=== PATIENT | male | born 1945 | race Caucasian/White ===

== ENCOUNTER 2016-10-08 13:35 | Inpatient (IN) | payer MEDICARE, BC ==
[~2016-10-08] VITALS: Ht 172.7 cm; Wt 54.3 kg
--- NOTE | ~2016-10-08 | HEMODYNAMI ---
PATIENT:JONAH WATERS MEDICAL RECORD: [id number] : 41 LOCATION:D. D.2116 ADMISSION DATE: 10/08/16 Generatedon:10/09/201617:04 Patient name: JONAH WATERS Patient #: [id number] SSN: D OB: 1945 Date of study: 10/09/2016 Page: Of Hemodynamic Procedure Report Patient Data Patient Demographics First Name: JONAH Gender: Male Last Name: EVELIN : 1945 Middle Initial: M Age: 71 year(s) Patient #: [id number] Race: Additional ID: [id number] Contact details Address: [facility] [address] State: [place] City: [place] Zip code: [address] Past Medical History Allergies Allergen Reaction Date Comments Reported Penicillins 03/15/2015 Other allergy 10/09/2016 pcn Admission Admission Data Admission Date: 10/08/2016 Admission Time: 15:12 Room #: D.2215 Insurance Payor: Private health insurance, Medicare Height (in.): 66 BSA: 1.69 (m2) Height (cm.): 167.64 BMI: 21.79 (kg/m2) Weight (lbs.): 135 Weight (kg.): 61.23 Lab Results Lab Result Date: 10/09/2016 Lab Result Time: 7:10 Biochemistry Name Units Result Min Max BUN mg/dl 29 --(----)-* 7 18 Creatinine mg/dl 1 --(--*-)-- 0.6 1.3 CBC Name Units Result Min Max Hematocrit % 43.3 --(*---)-- 42 54 Hemoglobin g/dl 14 --(*---)-- 13.5 17.5 Procedure Procedure Types Cath Procedure Diagnostic Procedure LHC LHC w/Coronaries PCI Procedure Coronary Stent Initial Procedure Description Procedure Date Procedure Date: 10/09/2016 Procedure Start Time: 16:49 Procedure End Time: 17:03 Procedure Staff Name Function Dewayne Donnelly MD Performing Physician Tisha Zapata RT Scrub Krista Myles RN Nurse Shaun Foley RN Solderer Assembly Repair Ry Peraza RT Monitor Procedure Data Cath Procedure Fluoroscopy Diagnostic fluoroscopy Total fluoroscopy Time: 2.4 time: 2.4 min min Diagnostic fluoroscopy Total fluoroscopy dose: 704 dose: 704 mGy mGy Contrast Material Contrast Material Type Amount (ml) Isovue 300 86 Entry Location Entry Primary Successful Side Size Upsize Upsize Entry Closure Succes sful Closure Location (Fr) 1 (Fr) 2 (Fr) Remarks Device Remarks Femoral Right 5 Fr 6 Fr Vascade artery Short Closure System Estimated blood loss: 10 ml Diagnostic catheters Device Type Used For End Catheter Placement Cordis 5Fr Pigtail Procedure Catheter (MP) Cordis 5Fr JL 4.0 Procedure Catheter (MP) Cordis Infinity 5Fr JL 6 Procedure catheter Cordis 5Fr 3DRC Catheter Procedure (MP) Procedure Complications No complications Procedure Medications Medication Administration Route Dosage Oxygen NC 2 l/min Heparin Flush Bag added to field 2 bags (1000units/500ml NS) Lidocaine 2% added to field 20 Fentanyl I.V. 50 mcg Versed I.V. 1 mg Fentanyl I.V. 50 mcg Versed I.V. 1 mg Heparin Bolus I.V. 4000 units Integrilin (Bolus I.V. 5.6 ml 2mg/ml) Plavix P.O. 600 mg Hemodynamics Rest BSA: 1.69 (m2) HGB: 14 (g/dl) O2 Consumption: Estimated: 196.02 (ml/min) O2 Cons umption indexed: Estimated:115.99 (ml/min/m) Heart Rate: 72 (bpm) Snapshots Pre Cath Intra NCS Post Cath Vital Signs Time Heart Resp SPO2 NIBP (mmHg) Rhythm Pain Status Sedation Rate (ipm) (%) Level (bpm) 16:39:46 73 32 96 166/87(130) NSR 8 (11) , 10(A) Utterly horrible 16:44:02 72 33 97 164/87(134) NSR 8 (11) , 10(A) Utterly horrible 16:48:18 68 30 98 157/86(124) NSR 5 (11) , 10(A) Very distressing 16:52:34 70 26 97 157/80(121) NSR 0 (11) , No 9(A) pain 16:56:48 70 27 95 155/80(122) NSR 0 (11) , No 9(A) pain 17:01:02 71 23 97 154/79(118) NSR 0 (11) , No 10(A) pain Medications Time Medication Route Dose Verified Delivered Reason Notes Effectiveness by by 16:38:48 Oxygen NC 2 Dewayne Krista Per physician l/min Andrzej Myles RN 16:38:56 Heparin Flush added 2 Dewayne Dewayne used for Bag to bags Andrzej Donnelly MD procedure (1000units/500ml field NS) 16:39:04 Lidocaine 2% added 20ml Dewayne Dewayne used for to vial Andrzej Donnelly MD procedure field 16:45:23 Fentanyl I.V. 50 Dewayne Krista for back pain mcg Andrzej Myles RN 16:48:04 Versed I.V. 1 mg Dewayne Krista for sedation Andrzej Myles RN 16:50:04 Fentanyl I.V. 50 Dewayne Krista for sedation mcg Andrzej Myles RN 16:50:11 Versed I.V. 1 mg Dewayne Krista for sedation Andrzej Myles RN 16:56:16 Heparin Bolus I.V. 4000 Dewayne Krista for dose units Andrzej Myles RN anticoagulation verified with dr donnelly 16:58:28 Integrilin I.V. 5.6 Dewayne Krista for (Bolus 2mg/ml) ml Andrzej Myles RN antiplatelet therapy 16:59:44 Plavix P.O. 600 Dewayne Krista for mg Andrzej Myles RN antiplatelet therapy Procedure Log Time Note 16:14:56 Shaun Foley RN sent for patient. Start room use. 16:24:57 Time tracking: Regular hours 16:25:00 Plan of Care:Hemodynamics will remain stable., Cardiac rhythm will remain stable., Comfort level will be maintained., Respiratory function will remain adequate., Patient/ family verbilizes understanding of procedure., Procedure tolerated without complication., Recovers from procedure without complications.. 16:38:38 Vital chart was started 16:38:48 Oxygen 2 l/min NC was given by Krista Myles RN; Per physician; 16:38:56 Heparin Flush Bag (1000units/500ml NS) 2 bags added to field was given by Dewayne Donnelly MD; used for procedure; 16:39:04 Lidocaine 2% 20ml vial added to field was given by Dewayne Donnelly MD; used for procedure; 16:44:07 Patient received from Med II to CCL 1 Alert and oriented. Tansferred to table in Supine position. 16:44:08 Warm blankets applied, and abraham hugger turned on for patient comfort. 16:44:09 Correct patient and procedure confirmed by team. 16:44:09 ECG and BP/O2 sat monitors applied to patient. 16:44:12 Baseline sample Acquired. 16:44:18 Rhythm: sinus rhythm 16:44:38 H&P Date Dictated: 10/09/2016 Within 30 days and on chart.. 16:44:41 Pre-procedure instructions explained to patient. 16:44:41 Pre-op teaching completed and patient verbalized understanding. 16:44:52 Family in waiting room. 16:44:54 Patient NPO since Midnight. 16:45:03 Patient allergic to Other allergypcn 16:45:11 Is the patient allergic to Iodine/contrast media? No. 16:45:17 Is patient on blood thinner?No 16:45:18 Patient diabetic? No. 16:45:21 Previous problem with sedation/anesthesia? No ? 16:45:23 Fentanyl 50 mcg I.V. was given by Krista Myles RN; for back pain; 16:45:27 Snore? Yes 16:45:28 Sleep apnea? No 16:45:29 Deviated septum? No 16:45:30 Opens mouth fully? Yes 16:45:31 Sticks out tongue? Yes 16:45:34 Airway obstruction? Yes copd 16:45:40 Dentures? Yes in tight 16:45:43 Pre procedure: right dorsailis pedis pulse 2+ Normal; easily identifiable; not easily obliterated 16:45:46 Patient pain scale 0/10 ?. 16:45:58 IV patent on arrival in right antecubital with 0.9% NaCl at [facility]. 16:46:53 Lab Result : BUN 29 mg/dl 16:46:53 Lab Result : Hemoglobin 14 g/dl 16:46:53 Lab Result : Creatinine 1 mg/dl 16:46:53 Lab Result : Hematocrit 43.3 % 16:46:56 Lab results completed and on chart. 16:46:59 Right groin area was prepped with chlora-prep and draped in sterile fashion 16:47:00 Alarms reviewed by R. N. 16:47:01 Sharps counted by scrub and verified by R.N. 16:47:03 Use device set Femoral Dx 16:47:05 Tegaderm 4 x 4 opened to sterile field. 16:47:06 Acist Manifold opened to sterile field. 16:47:07 Acist Hand Control opened to sterile field. 16:47:08 Acist Syringe opened to sterile field. 16:47:08 Bag Decanter opened to sterile field. 16:47:10 Cardinal Cath Pack opened to sterile field. 16:47:10 Terumo 5Fr Burney Sheath opened to sterile field. 16:47:11 St Reese 260cm J .035 wire opened to sterile field. 16:47:12 Cordis Infinity 5Fr Multipack catheter opened to sterile field. 16:47:17 --------ALL STOP TIME OUT------ 16:47:18 Final Timeout: patient, procedure, and site verified with staff and physician. All members of the team are in agreement. 16:47:19 Right groin site verified by team. 16:47:22 Physical assessment completed. ASA score P 3 - A patient with severe systemic disease as per Dewayne Donnelly MD. 16:47:27 Sedation plan: IV Moderate Sedation Versed, Fentanyl 16:47:35 Patient Height : 167.64 cm 16:47:38 Patient Weight : 61.23 kg 16:47:43 Insurance Payor : Private health insurance, Medicare 16:48:04 Versed 1 mg I.V. was given by Krista Myles RN; for sedation; 16:49:14 Zero performed for pressure channel P1 16:49:54 Procedure started. 16:49:54 Full Disclosure recording started 16:49:56 Local anesthetic to right femoral artery with Lidocaine 2% by Dewayne Donnelly MD.INITIAL ACCESS ONLY 16:50:04 Fentanyl 50 mcg I.V. was given by Krista Myles RN; for sedation; 16:50:11 Versed 1 mg I.V. was given by Krista Myles RN; for sedation; 16:50:33 A 5 Fr sheath was inserted into the Right Femoral artery 16:50:38 A Cordis 5Fr Pigtail Catheter (MP) was advanced over the wire and used for Procedure. 16:50:40 LV gram done using GUAJARDO 16:50:44 Injector settings: Ml/sec: 110, Volume: 20, 16:51:02 EF : 30 % 16:51:04 Catheter exchanged over wire. 16:51:07 A Cordis 5Fr JL 4.0 Catheter (MP) was advanced over the wire and used for Procedure. 16:52:39 Catheter removed. unable to cannulate vessel. 16:52:55 A Cordis Infinity 5Fr JL 6 catheter was advanced over the wire and used for Procedure. 16:53:01 LCA angiography performed. 16:54:07 Terumo 6Fr Burney Sheath opened to sterile field. 16:54:08 Weir Black Rhino Groupisper J 300cm 0.014 guide wire opened to sterile field. 16:54:09 Merit BasixCompak Inflation Kit opened to sterile field. 16:54:11 IV Extension Set opened to sterile field. 16:54:17 Catheter exchanged over wire. 16:54:21 A Cordis 5Fr 3DRC Catheter (MP) was advanced over the wire and used for Procedure. 16:55:19 Catheter removed. 16:55:34 Sheath upsized to a 6 Fr Short. 16:56:13 [place] Sci Mach 1 6Fr Q 5.0 guide catheter opened to sterile field. 16:56:16 Heparin Bolus 4000 units I.V. was given by Krista Myles RN; for anticoagulation; dose verified with dr donnelly 16:56:23 6 Fr Q5 guide catheter was inserted over the wire 16:57:40 whisper wire advanced. 16:57:43 Wire advanced across lesion. 16:58:20 Inflation Number: 1 A Medtronic Resolute 3.5 X 9 stent was prepped and advanced across the LMCA. The stent was deployed at 13 KATIA for 0:10 (min:sec). 16:58:28 Integrilin (Bolus 2mg/ml) 5.6 ml I.V. was given by Krista Myles RN; for antiplatelet therapy; 16:58:28 Stent catheter was removed intact over wire. 16:58:38 ACC PCI Site: LMCA has 75% stenosis. 16:58:41 ACC Pre-intervention TIFFANY Flow is 2. 16:58:44 ACC Post-intervention TIFFANY Flow is 3. 16:58:57 Wire removed. 16:58:57 Guide catheter removed. 16:59:05 Vascade 6/7 Fr Closure Device opened to sterile field. 16:59:36 Sheath removed intact; hemostasis achieved with Vascade Closure System to the Right Femoral artery. 16:59:39 Procedure ended.(Physican Out) 16:59:44 Plavix 600 mg P.O. was given by Krista Myles RN; for antiplatelet therapy; 16:59:49 Fluoroscopy time 02.40 minutes. 16:59:53 Fluoroscopy dose: 704 mGy 16:59:53 Flurop Dose total: 704 17:00:18 Contrast amount:Isovue 300 86ml. 17:00:19 Sharps counted by scrub and verified by R.N. 17:02:22 Insertion/operative site no bleeding no hematoma. 17:02:24 Post-op/insertion site Right Femoral artery dressed using a 4 x 4 and Tegaderm. 17:02:28 Post right femoral artery:stable, soft, clean and dry 17:02:30 Post Procedure Pulses reassessed and unchanged 17:02:33 Post-procedure physical assessment completed. ASA score P 3 - A patient with severe systemic disease as per Dewayne Donnelly MD. 17:02:36 Post procedure rhythm: unchanged. 17:02:38 Estimated blood loss: 10 ml 17:02:39 Post procedure instruction explained to patient.Patient verbalizes understanding. 17:02:40 Patient needs reinforcement of post procedure teaching. 17:03:08 Procedure type changed to Cath procedure, Diagnostic procedure, LHC, LHC w/Coronaries, PCI procedure, Coronary Stent Initial 17:03:31 Procedure and supply charges have been captured, reviewed, submitted and are correct. 17:03:34 Procedure Complication : No complications 17:03:36 Vital chart was stopped 17:03:37 See physician's report for complete and final results. 17:03:39 Report given to PCU. 17:03:41 Patient transfered to PCU with Stretcher. 17:03:46 Procedure ended. 17:03:46 Full Disclosure recording stopped 17:03:56 ACC-PCI Only Patient was given prescriptions, or instructed by Dewayne Donnelly MD to start/continue the following medications upon discharge: Plavix 17:03:58 End room use (Document Last) Intervention Summary Intervention Notes Time ActionType Lesion and Equipment Action# Pressure Duration Attributes Used 16:58:20 Place stent LMCA Medtronic 1 13 00:10 Resolute 3.5 X 9 stent Device Usage Item Name Manufacture Quantity Catalog Number Hospital Part Current Minim al Lot# / Charge Number Stock Stock Serial# Code Tegaderm 4 3M 1 [id number] 249226 157166 5 x 4 Acist Acist 1 13066 946193 011203 302482 5 FoxyTunes Systems Our Family Kitchen Acist Hand Acist 1 40035 097276 150096 777166 5 Luxtera Systems Our Family Kitchen Acist Acist 1 66576 286182 659836 619608 20 Syringe Zebra Imaging Systems Our Family Kitchen Bag Microtek 1 2002S 273824 09300 409196 5 Quitbit Inc. Cardinal Cardinal 1 [id number] 599440 75454 376676 5 Cath Pack Health Terumo 5Fr Terumo 1 [id number] 540159 613887 682590 [address] Reese 1 783132 517646 059599 734655 30 260cm J .035 wire Cordis Cardinal 1 [id number] 411682 44048 000392 30 Infinity Health 5Fr Multipack catheter Cordis 5Fr Cardinal 1 887447 5 Pigtail Health Catheter (MP) Cordis 5Fr Cardinal 1 553419 5 JL 4.0 Health Catheter (MP) Cordis Cardinal 1 [id number] 050963 973393 191240 5 Infinity Health 5Fr JL 6 catheter Terumo 6Fr Terumo 1 [id number] 188631 387227 144007 40 Burney Sheath Weir Weir 1 [id number] 882183 387622 814469 5 Whisper J Vascular 300cm 0.014 guide wire Merit Merit 1 [id number] 884737 150308 826877 15 [facility] Medical Inflation Kit IV Hospira 1 14057-84 384948 10860 304801 5 Extension Set Cordis 5Fr Cardinal 1 004715 5 3DRC Health Catheter (MP) [place] Sci [place] 1 [id number] 404626 564245 221810 0 Mach 1 6Fr Scientific Q 5.0 guide catheter Medtronic Medtronic 1 [id number] 659962 793943 7 [id number] Resolute 3.5 X 9 stent Vascade 03/17 Cardiva 1 [id number] 404098 798005 057724 5 Fr Closure Medical, Device Inc. Signature Audit [place] Stage Time Signature Unsigned Intra-Procedure 10/09/2016 Ry Pearza 5:04:43 PM RT(R) Signatures Monitor : Ry Peraza RT Signature : Date : Time : [address] [place] [address]
[~2016-10-08 13:35] MED LIST: BAYER CHEWABLE81 MG PO; COREG 3.1253.125 MG PO; HYDROCODONE-APA1 TAB PO; IPRAT-ALBUT 0.5-3 ML UPD; K-DUR20 MEQ PO; LEXAPRO20 MG PO; LIPITOR10 MG PO; MOBIC7.5 MG PO; NICODERM C1 PATCH .1 TRANSDERM; NORVASC; NORVASC2.5 MG; OMNICEF300 MG PO; PLAVIX75 MG PO; PRINIVIL20 MG PO; SYMBICORT 16010.2 GM INH; VERELAN360 MG PO; VIBRAMYCIN 100100 MG PO
[2016-10-08 15:14] LABS: BASOPHILS 0.1 % (0.0-2.0); EOSINOPHILS 0.1 % (0-7); HEMATOCRIT 43.5 % (42.0-54.0); HEMOGLOBIN 14.2 g/dL (13.5-17.5); IMMATURE GRANULOCYTES 0.3 % (0-5); LYMPHOCYTES 3.9 % (15-50); MCH 30.8 pg (26.0-34.0); MCHC 32.6 g/dL (31.0-37.0); MCV 94.4 fL (80.0-100.0); MEAN PLATELET VOLUME 10.6 fL (7.4-10.4); MONOCYTES 7.2 % (2-11); NEUTROPHILS 88.4 % (40-80); RBC 4.61 10x6/uL (4.20-6.10); RDW 13.8 % (11.5-14.5); WBC 14.9 10x3/uL (4.8-10.8)
[2016-10-08 15:16] LABS: PLATELET COUNT 136 10x3/uL (130-400)
[2016-10-08 15:27] LABS: ALBUMIN 3.2 g/dL (3.4-5.0); ALKALINE PHOSPHATASE 105 U/L (46-116); ALT (SGPT) 20 U/L (10-68); BILIRUBIN - TOTAL 0.97 mg/dL (0.2-1.3); CALC OSMOLALITY 280 mosm/kg (275-300); CALCIUM 8.8 mg/dL (8.5-10.1); CARBON DIOXIDE 31.5 mmol/L (21.0-32.0); CHLORIDE - SERUM 102 mmol/L (98-107); CREATININE - SERUM 0.7 mg/dL (0.6-1.3); GLUCOSE 112 mg/dL (74-106); POTASSIUM - SERUM 3.9 mmol/L (3.5-5.1); PROTEIN - SERUM 6.7 g/dL (6.4-8.2); SODIUM 139 mmol/L (136-145); UREA NITROGEN 18 mg/dL (7-18); eGFR NON AFRICAN AMERICAN > 90 mL/min (90-120)
[2016-10-08 15:43] LABS: CREATINE KINASE 34 UL (21-232); PRO BNP 6810 pg/mL (0-125)
[2016-10-08 15:46] LABS: TROPONIN-I 0.179 ng/mL (0.000-0.060)
--- NOTE | 2016-10-08 16:03 | NUR ---
PATIENT RECEIVED TO FLOOR FROM ER VIA STRETCHER. TRANSFERRED SELF TO BED. NO SIGNS OF DISTRESS NOTED. ORIENTED TO ROOM. PRESENT. SIDE RAILS UP X1. BED IN LOW POSITION. CALL LIGHT IN REACH.
[2016-10-08] MEDS ORDERED: NORVASC5 MG PO ×2 (16:07→16:39)
[2016-10-08] MEDS ORDERED: OMEPRAZOLE20 M1 PO (16:08)
[2016-10-08] MEDS ORDERED: PROSCAR5 MG PO (16:08)
[2016-10-08] MEDS ORDERED: HAWTHORNE BERRY PO (16:09)
[2016-10-08] MEDS ORDERED: CO Q-1030 MG PO (16:09)
[2016-10-08 16:22] VITALS: BP 139/63; BMI 20.8
--- NOTE | 2016-10-08 18:42 | NUR ---
ALERT IN BED. C/O PAIN 02/17. 1 TAB NORCO ADMINISTERED PER PRN ORDER. NO FURTHER NEEDS VOICED. SIDE RAILS UP X2. BED IN LOW POSITION. CALL LIGHT IN REACH.
[2016-10-08 19:00] VITALS: BP 138/67
[2016-10-08 19:24] LABS: CKMB 1.5 U/L (0.0-3.6); CREATINE KINASE 43 UL (21-232)
[2016-10-08 19:27] LABS: TROPONIN-I 0.168 ng/mL (0.000-0.060)
[2016-10-09] VITALS: BP 146/67
[2016-10-09 01:45] LABS: CKMB 1.3 U/L (0.0-3.6); CREATINE KINASE 23 UL (21-232)
[2016-10-09 01:46] LABS: TROPONIN-I 0.142 ng/mL (0.000-0.060)
[2016-10-09 04:00] VITALS: BP 158/75
--- NOTE | 2016-10-09 07:30 | NUR ---
PT AWAKE AND ALERT NO DISTRES SNTOED VOICES ALL NEEDS TO STAFF. OBEYS ALL COMMANDS HAS COARSE SOUNDS NOTED TO LUNGS SHORT OF BREATH WITH EXERTION WILL MONITOR.
[2016-10-09 07:33] LABS: BASOPHILS 0 % (0.0-2.0); EOSINOPHILS 0 % (0-7); HEMATOCRIT 43.3 % (42.0-54.0); IMMATURE GRANULOCYTES 0.2 % (0-5); LYMPHOCYTES 6.1 % (15-50); MCH 30.2 pg (26.0-34.0); MCHC 32.3 g/dL (31.0-37.0); MCV 93.5 fL (80.0-100.0); MEAN PLATELET VOLUME 11.3 fL (7.4-10.4); MONOCYTES 4.4 % (2-11); NEUTROPHILS 89.3 % (40-80); PLATELET COUNT 147 10x3/uL (130-400); RBC 4.63 10x6/uL (4.20-6.10); RDW 13.8 % (11.5-14.5)
[2016-10-09 07:38] VITALS: BP 144/61
[2016-10-09 08:08] LABS: CALCIUM 8.9 mg/dL (8.5-10.1); CARBON DIOXIDE 31.1 mmol/L (21.0-32.0); CHLORIDE - SERUM 107 mmol/L (98-107); CKMB 1.5 U/L (0.0-3.6); CREATINE KINASE 26 UL (21-232); GLUCOSE 130 mg/dL (74-106); POTASSIUM - SERUM 4.3 mmol/L (3.5-5.1); SODIUM 142 mmol/L (136-145)
[2016-10-09 08:10] LABS: CALC OSMOLALITY 290 mosm/kg (275-300); TROPONIN-I 0.112 ng/mL (0.000-0.060); UREA NITROGEN 29 mg/dL (7-18); eGFR NON AFRICAN AMERICAN 78 mL/min (90-120)
[2016-10-09 11:47] VITALS: BP 144/59
[2016-10-09 13:40] VITALS: Ht 172.7 cm; Wt 54.3 kg
[2016-10-09 15:34] VITALS: BP 171/77
--- NOTE | 2016-10-09 15:52 | NUR ---
PREOP MEDS FOR TOBACCO DRYING MACHINE OPERATOR GIVEN AT THIS TIME. AWAITING CATH TEAM TO TRANSPORT TO TOBACCO DRYING MACHINE OPERATOR.
--- NOTE | 2016-10-09 16:10 | NUR ---
LYING IN BED,WITHOUT DISTRESS.FAMILY AT SIDE.PT WILL GO TO SOCIAL ORGANIZATION PROFESSOR FOR PROCEDURE
--- NOTE | 2016-10-09 16:14 | NUR ---
TO LATHE MACHINIST AT THIS TIME VIA BED
--- NOTE | 2016-10-09 17:30 | NUR ---
TRANSFER FROM SENIOR VICE PRESIDENT & GENERAL COUNSEL. VS WNL. RIGHT GROIN STABLE WITHOUT BLEEDING OR HEMATOMA NOTED. WILL MONITOR.
--- NOTE | 2016-10-09 19:00 | NUR ---
RECEIVED REPORT AND ASSUMED PT CARE FROM DAY SHIFT NURSE @ THIS TIME.
--- NOTE | 2016-10-09 21:18 | NUR ---
PT RESTING WELL WITHOUT C/O OR DISTRESS NOTED. RIGHT GROIN UNCHANGED AND REMAINS CDI. NO NEEDS VOICED. VSS, AFEBRILE. NSR ON MONITOR, HR 60'S.
[2016-10-09 22:35] VITALS: BP 140/68
[2016-10-10 01:32] VITALS: BP 137/68
[2016-10-10 05:10] LABS: BASOPHILS 0.1 % (0.0-2.0); EOSINOPHILS 0 % (0-7); HEMATOCRIT 39.5 % (42.0-54.0); HEMOGLOBIN 12.7 g/dL (13.5-17.5); IMMATURE GRANULOCYTES 0.3 % (0-5); MCH 30.2 pg (26.0-34.0); MCHC 32.2 g/dL (31.0-37.0); MCV 93.8 fL (80.0-100.0); MEAN PLATELET VOLUME 11.6 fL (7.4-10.4); MONOCYTES 4.5 % (2-11); NEUTROPHILS 91.1 % (40-80); PLATELET COUNT 141 10x3/uL (130-400); RBC 4.21 10x6/uL (4.20-6.10); RDW 14.1 % (11.5-14.5)
[2016-10-10 05:15] LABS: WBC 17.7 10x3/uL (4.8-10.8)
[2016-10-10 05:20] LABS: CALC OSMOLALITY 290 mosm/kg (275-300); CALCIUM 9.1 mg/dL (8.5-10.1); CARBON DIOXIDE 29.5 mmol/L (21.0-32.0); CHLORIDE - SERUM 108 mmol/L (98-107); CREATININE - SERUM 0.8 mg/dL (0.6-1.3); GLUCOSE 126 mg/dL (74-106); POTASSIUM - SERUM 4.9 mmol/L (3.5-5.1); SODIUM 142 mmol/L (136-145); UREA NITROGEN 30 mg/dL (7-18); eGFR NON AFRICAN AMERICAN > 90 mL/min (90-120)
[2016-10-10 05:59] VITALS: BP 148/64
--- NOTE | 2016-10-10 06:48 | NUR ---
RESTING QUIETLY NAD NOTED
[2016-10-10 07:56] VITALS: BP 179/85
[2016-10-10 12:22] VITALS: BP 154/71
[2016-10-10 16:00] VITALS: BP 133/54
--- NOTE | 2016-10-10 19:29 | NUR ---
INITIAL ROUNDS COMPLETED. PT DENIED ANY DISCOMFORT. WILL CONTINUE TO MONITOR.
[2016-10-10 20:30] VITALS: BP 152/77
--- NOTE | 2016-10-10 22:07 | NUR ---
PM MEDS GIVEN. PT DENIES ANY DISCOMFORT. WILL CONTINUE TO MONITOR.
--- NOTE | 2016-10-10 23:58 | NUR ---
PT RESTING WITH EYES CLOSED. RESP EVEN AND REGULAR. SR UP X2, CALL LIGHT WITHIN REACH.
[2016-10-11 00:30] VITALS: BP 148/73
[2016-10-11 01:41] LABS: APPEARANCE CLEAR (CLEAR); BILIRUBIN NEGATIVE (NEGATIVE); COLOR DK YELLOW (YELLOW); GLUCOSE NEGATIVE (NEGATIVE); KETONE SMALL mg/dL (NEGATIVE); LEUKOCYTE ESTERASE NEGATIVE (NEGATIVE); NITRITE NEGATIVE (NEGATIVE); PROTEIN NEGATIVE (NEGATIVE); UROBILINOGEN NORMAL (NORMAL)
--- NOTE | 2016-10-11 02:36 | NUR ---
RT TX IN PROGRESS. PT DENIES ANY DISCOMFORT. WILL CONTINUE TO MONITOR.
--- NOTE | 2016-10-11 03:43 | NUR ---
PT RESTING WITH EYES CLOSED. RESP EVEN AND REGULAR. SR UPX2, CALL LIGHT WITHIN REACH.
[2016-10-11 04:30] VITALS: BP 155/77
--- NOTE | 2016-10-11 06:25 | NUR ---
VSS THROUGHOUT NIGHT. SR PER CM. PT STATED NORCO HELPED PAIN. NEEDS MET; WILL CONTINUE TO MONITOR.
[2016-10-11 06:44] LABS: BASOPHILS 0.1 % (0.0-2.0); EOSINOPHILS 0 % (0-7); HEMATOCRIT 40.2 % (42.0-54.0); IMMATURE GRANULOCYTES 0.2 % (0-5); LYMPHOCYTES 3.1 % (15-50); MCH 30.4 pg (26.0-34.0); MCHC 32.3 g/dL (31.0-37.0); MCV 94.1 fL (80.0-100.0); MEAN PLATELET VOLUME 11.8 fL (7.4-10.4); MONOCYTES 2.6 % (2-11); PLATELET COUNT 161 10x3/uL (130-400); RBC 4.27 10x6/uL (4.20-6.10); RDW 13.9 % (11.5-14.5); WBC 17.1 10x3/uL (4.8-10.8)
[2016-10-11 06:56] LABS: CALC OSMOLALITY 282 mosm/kg (275-300); CALCIUM 8.4 mg/dL (8.5-10.1); CARBON DIOXIDE 31.7 mmol/L (21.0-32.0); CHLORIDE - SERUM 106 mmol/L (98-107); CREATININE - SERUM 0.7 mg/dL (0.6-1.3); GLUCOSE 119 mg/dL (74-106); POTASSIUM - SERUM 4.8 mmol/L (3.5-5.1); SODIUM 140 mmol/L (136-145); eGFR NON AFRICAN AMERICAN > 90 mL/min (90-120)
[2016-10-11 06:57] LABS: UREA NITROGEN 22 mg/dL (7-18)
--- NOTE | 2016-10-11 07:15 | NUR ---
RECEIVED PT IN BED DENIES ANY NEEDS OR DISCOMFORT NAD NOTED
[2016-10-11 09:00] VITALS: BP 111/72
[2016-10-11 11:58] VITALS: BP 155/72
[2016-10-11 17:14] VITALS: BP 149/75; BP 96/52
[2016-10-11 21:18] VITALS: BP 143/69
--- NOTE | 2016-10-11 22:29 | NUR ---
INITIAL ROUNDS COMPLETED AT 1909 HRS. PT DENIED ANY DISCOMFORT. ASSESSMETN COMPLETED AT 1954 HRS. VSS. SR PER CM HR 66. IV TO LFA WITH NS AT 10CC/HR. IV PATENT. O2 4LNC. LUNGS DIMINISHED IN BASES BILAT. GOOD PEDAL PULSES. R GROIN CLEAN, DRY AND INTACT. PM MEDS GIVEN INCLUDING NORCO FOR C/O CHRONIC BACK PAIN. PT CURRENTLY RESTING WITH EYES CLOSED. RESP EVEN AND REGULAR. SR UP X2, CALL LIGHT WITHIN REACH.
--- NOTE | 2016-10-12 00:23 | NUR ---
PT RESTIG WITH EYES CLOSED. RESP EVEN AND REGULAR. SR UP X2, CALL LIGHT WITHIN REACH.
[2016-10-12 00:30] VITALS: BP 146/74
--- NOTE | 2016-10-12 02:11 | NUR ---
PT RESTING WITH EYES CLOSED. RESP EVEN AND REGULAR. SR UP X2, CALL LIGHT WITHIN REACH.
--- NOTE | 2016-10-12 04:29 | NUR ---
PT RESTING WITH EYES CLOSED. RESP EVEN AND REGULAR. SR UP X2, CALL LIGHT WITHIN REACH.
[2016-10-12 04:30] VITALS: BP 156/80
[2016-10-12 06:23] LABS: BASOPHILS 0.1 % (0.0-2.0); EOSINOPHILS 0 % (0-7); HEMATOCRIT 42.9 % (42.0-54.0); HEMOGLOBIN 13.8 g/dL (13.5-17.5); IMMATURE GRANULOCYTES 0.3 % (0-5); LYMPHOCYTES 5.3 % (15-50); MCH 30.1 pg (26.0-34.0); MCHC 32.2 g/dL (31.0-37.0); MCV 93.5 fL (80.0-100.0); MEAN PLATELET VOLUME 11.5 fL (7.4-10.4); MONOCYTES 3.9 % (2-11); NEUTROPHILS 90.4 % (40-80); PLATELET COUNT 170 10x3/uL (130-400); RBC 4.59 10x6/uL (4.20-6.10); RDW 13.6 % (11.5-14.5)
[2016-10-12 06:28] LABS: WBC 12.2 10x3/uL (4.8-10.8)
[2016-10-12 06:32] LABS: CALC OSMOLALITY 280 mosm/kg (275-300); CALCIUM 8.9 mg/dL (8.5-10.1); CHLORIDE - SERUM 104 mmol/L (98-107); CREATININE - SERUM 0.7 mg/dL (0.6-1.3); GLUCOSE 111 mg/dL (74-106); POTASSIUM - SERUM 4.8 mmol/L (3.5-5.1); SODIUM 139 mmol/L (136-145); UREA NITROGEN 18 mg/dL (7-18); eGFR NON AFRICAN AMERICAN > 90 mL/min (90-120)
[2016-10-12 08:03] VITALS: BP 139/80
--- NOTE | 2016-10-12 09:21 | NUR ---
TELEMETRY SR. RESP UL ON 02 4L NC. IV PATENT. CALL LIGHT IN REACH. WILL CONT. PLAN OF CARE.
[2016-10-12 13:00] VITALS: BP 145/69
[2016-10-12 16:23] VITALS: BP 181/72
--- NOTE | 2016-10-12 16:39 | NUR ---
C/O OF BURNING TO LEFT SIDE NOSE AND FACE. C/O OF TINGLING TO LEFT SIDE FASE AFTER PAIN AND BURNIN RESOLVED. ZOFRAN 4 MG GIVEN FOR NAUSEA AND VOMITING. 02 SAT 95%. B/P 182/79. DEJA FOR DR. BURKETT NOTIFIED. NEW ORDERS GIVEN. WILL MONITOR.
--- NOTE | 2016-10-12 17:10 | NUR ---
DR. DIAZ AT BS. STROKE PROTACOL AND ORDERED STROKE PROTACOL. STAT CT ORDERED.
--- NOTE | 2016-10-12 17:28 | NUR ---
CT COMPLETED AND TAKEN TO ER. WILL CONT. PLAN OF CARE.
[2016-10-12 17:31] LABS: CKMB 1.4 U/L (0.0-3.6); CREATINE KINASE 24 UL (21-232); TROPONIN-I 0.049 ng/mL (0.000-0.060)
--- NOTE | 2016-10-12 18:31 | NUR ---
BACK FROM ER. VS STABLE. NO STROKE INCDIACTED. WILL CONT. PLAN OF CARE.
--- NOTE | 2016-10-12 19:00 | NUR ---
RECEIVED REPORT AND ASSUMED PT CARE FROM DAY SHIFT NURSE @ THIS TIME.
--- NOTE | 2016-10-12 20:31 | NUR ---
PT STATES HIS BACK IS HURTING AND REQUESTING PAIN PILL. PT NOW STATES UNABLE TO SWALLOW, WHEN PT SMILES HIS LEFT SIDE DOES NOT RAISE ANY. WHEN TAKING SMALL SIPS OF H2O PT IS COUGHING. GLASSWARE VERIFIER AND BUE STRENGTH EQUAL BILAT. BLE STRENGTH BILAT. PUPILS ORLY BILAT. CALL TO DEJA BETH APN ASSEMBLER FAUCETS FOR DR CALIX. AWAITING RETURN CALL.
--- NOTE | 2016-10-12 21:45 | NUR ---
PT SPOUSE COMES OUT TO DESK. STATES PT HAS BEEN TRYING TO URINATE ALL EVENING WITHOUT ANY SUCCESS. PT C/O TENDERNESS OVER PELVIC REGION ON PALP[ATION AND BLADDER FEELS DISTENDED. BLADDER SCAN DONE AT THE BEDSIDE, RESULTS 971 ML IN THE BLADDER. KRISHNAN CATH 16 FR PLACED PER ASEPTIC TECH FOR PT COMFORT. AWAITING RETURN CALL FROM DEJA BETH APN. PT URINE OUTPUT APPROX 1,000 ML CLEAR YELLOW URINE. KRISHNAN PLACED WITHOUT COMPLICATIONS AND PT TOLERATED WELL. NO CHANGES IN NEURO ASSESSMENT. WILL CONT TO MONITOR. SPOUSE @ BEDSIDE.
--- NOTE | 2016-10-12 22:14 | NUR ---
DEJA BETH APN RETURNS CALL. NOTIFIED OF PT BEING UNABLE TO SWALLOW AND LEFT SIDE FACIAL DROOP. ALSO EXPLAINED THAT PT IS NOW UNABLE TO VOID AND KRISHNAN CATHETER PLACED. NEW ORDERS RECEIVED FOR MRI OF THE BRAIN NOW AND ORDER RECEIVED TO CONSULT DR ROCHA. CALL PUT INTO DR ROCHA AT THIS TIME, AWAITING RETURN CALL.
--- NOTE | 2016-10-12 22:29 | NUR ---
PT AND SPOUSE STATE THAT D/T HARDWARE IN THE PT'S SPINE THAT PT IS UNABLE TO HAVE A MRI DONE. WILL SPEAK WITH FISHER EEL AND INFORM WHAT PT IS STATING ABOUT HAVING METAL HARDWARE.
[2016-10-12 22:42] VITALS: BP 157/76
--- NOTE | 2016-10-12 22:54 | NUR ---
NO RETURN CALL FROM DR ROCHA RECEIVED. CALL TO ANSWERING SERVICE TO PAGE DR ROCHA AGAIN TO NOTIFY OF CONSULT.
--- NOTE | 2016-10-12 23:31 | NUR ---
STILL NO RETURNED CALL FROM DR ROCHA TO INFORM HIM OF CONSULT. CALL TO ANSWERING SERVICE ONCE MORE AT THIS TIME.
--- NOTE | 2016-10-12 23:39 | NUR ---
IOS SOFTWARE ENGINEER HERE TO TAKE PT TO MRI. IOS SOFTWARE ENGINEER STATES THAT ORTHO HARDWARE DOES NOT EXCLUDE THE PT FROM HAVING A MRI. PT GOES VIA WC TO MRI AT THIS TIME ACCOMPANIED BY ZUMBA INSTRUCTOR. SPOUSE REMAINS IN ROOM
--- NOTE | 2016-10-13 00:15 | NUR ---
NO RETURN CALL FROM DR ROCHA X3 CALLS TO ANSWERING SERVICE. WILL NOTIFY DR ROCHA IN THE AM OF THIS CONSULT.
--- NOTE | 2016-10-13 00:15 | NUR ---
PT RETURNS FROM MRI. NEURO CHECKS DONE ORDERED. NO CHANGES NOTED. WILL CONT TO MONITOR.
[2016-10-13 05:35] VITALS: BP 165/81
[2016-10-13 06:35] LABS: HEMATOCRIT 45.6 % (42.0-54.0); HEMOGLOBIN 15.2 g/dL (13.5-17.5); MCH 30.6 pg (26.0-34.0); MCHC 33.3 g/dL (31.0-37.0); MCV 91.9 fL (80.0-100.0); MEAN PLATELET VOLUME 11.5 fL (7.4-10.4); PLATELET COUNT 217 10x3/uL (130-400); RBC 4.96 10x6/uL (4.20-6.10); RDW 13.4 % (11.5-14.5); WBC 22.8 10x3/uL (4.8-10.8)
[2016-10-13 06:58] LABS: CALC OSMOLALITY 278 mosm/kg (275-300); CALCIUM 9.2 mg/dL (8.5-10.1); CHLORIDE - SERUM 102 mmol/L (98-107); CREATININE - SERUM 0.6 mg/dL (0.6-1.3); POTASSIUM - SERUM 4.2 mmol/L (3.5-5.1); SODIUM 139 mmol/L (136-145); UREA NITROGEN 15 mg/dL (7-18); eGFR NON AFRICAN AMERICAN > 90 mL/min (90-120)
[2016-10-13 06:59] LABS: GLUCOSE 97 mg/dL (74-106)
[2016-10-13 07:39] LABS: APTT 26.4 SECONDS (22.8-39.4); INR 1.05 (0.85-1.17); PROTIME 13.6 SECONDS (11.6-15.0)
[2016-10-13 07:50] LABS: LYMPHOCYTES 5 % (15-50); MONOCYTES 8 % (2-11); NEUTROPHILS 83 % (40-80); PLATELET ESTIMATE NORMAL
[2016-10-13 07:52] VITALS: BP 174/84
--- NOTE | 2016-10-13 08:50 | NUR ---
TO CT BY BED FOR THORACENTESIS. TELEMETRY SR. IV PATENT. KRISHNAN INTACT. WILL CONT. PLAN OF CARE.
--- NOTE | 2016-10-13 09:54 | NUR ---
BACK FROM THORASENTESIS. VS WNL. DRSG TO BACKSIDE CLEAN AND DRY. WILL CONT. PLAN OF CARE.
--- NOTE | 2016-10-13 11:40 | NUR ---
SAB[address] WAY DONE AT BS.
[2016-10-13 12:00] VITALS: BP 167/75
[2016-10-13 12:40] LABS: PROTEIN - BODY FLUID 1.2 G/DL
[2016-10-13 13:17] LABS: LYMPH - BF 75 %; MACROPHAGES BF 16 %; MESOTHELIALS BF 6 %; NEUT - BF 3 %
--- NOTE | 2016-10-13 14:24 | NUR ---
Nutrition follow-up: Pt is currently NPO due to choking spell; bedside swallow eval reveals swallowing issues; pt to stay NPO until after MBSS. PO intake before choking spell was ~75% average of most meals. Labs reviewed +BM RDN will monitor patients diet advancement and tolerance; waiting for results of MBBS. RDN following.
--- NOTE | 2016-10-13 14:43 | NUR ---
BACK AND CHEST PAIN AT 8. DR. BURKETT NOTIFIED. MORPHINE 5 MG GIVENPER 1 TIME ORDER. WILL MONITOR.
[2016-10-13 15:44] VITALS: BP 155/73
[2016-10-13 20:33] VITALS: BP 146/66
[2016-10-14 00:32] VITALS: BP 152/99
[2016-10-14 04:42] VITALS: BP 147/66
--- NOTE | 2016-10-14 06:11 | NUR ---
PT ASSESSMENT COMPLETED PT C/O PAIN TO BACK AND PRN MORPHINE ADMIN ORDERED AND IN ROOM AT BEDSIDE CALL LIGHT IN REACH SR X2 BED LOW AND LOCKED WILL MONITOR
[2016-10-14 08:00] VITALS: BP 152/78
--- NOTE | 2016-10-14 09:00 | NUR ---
LEAVING FOR MRI BY W/C.
[2016-10-14 10:19] LABS: FUNGUS STAIN Final report (())
--- NOTE | 2016-10-14 11:30 | NUR ---
LEAVING FOR SWOLLOW EVAL BY BED.
[2016-10-14 12:00] VITALS: BP 160/105
[2016-10-14 13:39] LABS: CALCIUM 8.8 mg/dL (8.5-10.1); CARBON DIOXIDE 35.3 mmol/L (21.0-32.0); CHLORIDE - SERUM 101 mmol/L (98-107); GLUCOSE 122 mg/dL (74-106); POTASSIUM - SERUM 3.8 mmol/L (3.5-5.1); SODIUM 139 mmol/L (136-145)
[2016-10-14 13:52] LABS: BASOPHILS 0 % (0.0-2.0); CALC OSMOLALITY 282 mosm/kg (275-300); CREATININE - SERUM 0.8 mg/dL (0.6-1.3); EOSINOPHILS 0 % (0-7); HEMATOCRIT 50.5 % (42.0-54.0); IMMATURE GRANULOCYTES 0.6 % (0-5); LYMPHOCYTES 7.2 % (15-50); MCHC 33.7 g/dL (31.0-37.0); MEAN PLATELET VOLUME 11.1 fL (7.4-10.4); MONOCYTES 1.9 % (2-11); NEUTROPHILS 90.3 % (40-80); PLATELET COUNT 206 10x3/uL (130-400); RBC 5.49 10x6/uL (4.20-6.10); RDW 13.3 % (11.5-14.5); UREA NITROGEN 23 mg/dL (7-18); eGFR NON AFRICAN AMERICAN > 90 mL/min (90-120)
[2016-10-14 16:00] VITALS: BP 148/82
[2016-10-14 17:11] LABS: AFB SPECIMEN PROCESSING Concentration (())
[2016-10-14 20:00] VITALS: BP 157/86
[2016-10-15] VITALS: BP 166/90
--- NOTE | 2016-10-15 03:54 | NUR ---
EDITORIAL WRITER AT BEDSIDE TO OBTAIN VITALS, CALL LIGHT IN REACH. WILL CONTINUE WITH PLAN OF CARE.
[2016-10-15 04:00] VITALS: BP 167/92
[2016-10-15 06:04] LABS: BASOPHILS 0 % (0.0-2.0); EOSINOPHILS 0 % (0-7); HEMATOCRIT 46.3 % (42.0-54.0); HEMOGLOBIN 15.5 g/dL (13.5-17.5); IMMATURE GRANULOCYTES 0.5 % (0-5); MCH 30.8 pg (26.0-34.0); MCHC 33.5 g/dL (31.0-37.0); MEAN PLATELET VOLUME 11.6 fL (7.4-10.4); MONOCYTES 5.5 % (2-11); PLATELET COUNT 204 10x3/uL (130-400); RBC 5.03 10x6/uL (4.20-6.10); RDW 13.3 % (11.5-14.5); WBC 20.9 10x3/uL (4.8-10.8)
[2016-10-15 06:27] LABS: CALC OSMOLALITY 289 mosm/kg (275-300); CHLORIDE - SERUM 104 mmol/L (98-107); CREATININE - SERUM 0.8 mg/dL (0.6-1.3); GLUCOSE 110 mg/dL (74-106); MAGNESIUM - SERUM 2.4 mg/dL (1.8-2.4); PHOSPHOROUS 3.8 mg/dL (2.5-4.9); POTASSIUM - SERUM 3.9 mmol/L (3.5-5.1); SODIUM 142 mmol/L (136-145); UREA NITROGEN 28 mg/dL (7-18); eGFR NON AFRICAN AMERICAN > 90 mL/min (90-120)
[2016-10-15 08:14] VITALS: BP 134/85
[2016-10-15 12:45] VITALS: BP 179/92
--- NOTE | 2016-10-15 13:18 | NUR ---
Nutrition follow-up: Pt NPO for PEG tube placement due to aspiration Labs reviewed Wt: 135# Recommend starting Jevity 1.2 mara @ 20 ml/hr with gradual increase to goal rate of 70 ml/hr RDN following.
--- NOTE | 2016-10-15 16:23 | OP ---
PATIENT NAME: JONAH WATERS MEDICAL RECORD: [id number] :43 LOCATION:D.M2 D.2116 ADMISSION DATE:10/08/16 SURGEON: CANDACE PAIGE MD DATE OF OPERATION: 10/09/2016 PROCEDURES: 1. PTCA stent left main. 2. Left heart catheterization. 3. Selective coronary angiography. 4. Left ventriculogram. INDICATION: Angina and coronary artery disease. PROCEDURE IN DETAIL: After informed consent was obtained and after a detailed explanation of the risks, benefits as well as alternative therapies, the patient elected to proceed with angiogram and angioplasty. The right femoral area was prepped and draped in normal sterile fashion. The right femoral artery was cannulated via modified Seldinger technique with placement of 6-Belarusian sheath. All catheters exchanged through this sheath. FINDINGS: The left ventriculogram was performed in standard 30-degree GUAJARDO view, reveals moderate LV dysfunction with ejection fraction of 30%. SELECTIVE CORONARY ANGIOGRAPHY: 1. Left main has a 70% to 80% stenosis in the distal aspect. 2. Left circumflex has moderate irregularities, but no flow-limiting stenosis. 3. Left anterior descending has moderate irregularities, but no flow-limiting stenosis. Previously placed stents are widely patent. 4. Right coronary is chronically totally occluded, distal right coronary fills via left to right collaterals. PTCA STENT OF THE LEFT MAIN: The stent used was a 3.5 x 9 mm Resolute stent taken to 17 atmospheres. Result was 0% residual stenosis. OVERALL IMPRESSION: Successful percutaneous transluminal coronary angioplasty stent of the left main going from 70-80% initial stenosis to 0% residual stenosis. TRANSINT:[id number] Voice Confirmation ID: [id number] DOCUMENT ID: [id number] CANDACE PAIGE MD at 1623 CC: [id number] DICTATION DATE: 10/09/16 170 C JAVA DEVELOPER: 10/09/16 1808 ADM IN [place] [id number] [place] [address]
--- NOTE | 2016-10-15 16:23 | EC ---
PATIENT:JONAH WATERS DATE OF SERVICE: 10/08/16 SEX: M MEDICAL RECORD: [id number] DATE OF : [birth year] LOCATION:D.M2 D.211 AGE OF PATIENT: 71 ADMISSION DATE: 10/08/16 REFERRING PHYSICIAN: INTERPRETING PHYSICIAN: CANDACE DONNELLY MD ECHOCARDIOGRAM REPORT ECHO CHARGES 4 ECHO COMPLETE CLINICAL DIAGNOSIS: HTN HX CAD/STENTS ECHOCARDIOGRAPHIC MEASUREMENTS (adult normal given) AC root (d.<3.7cm) 3.6 LV Septum d (<1.2 cm> 1.4 Valve Excursion 2.0 LV Septum (systole) 1.6 Left Atria (s.<4.0cm> 4.7 LVPW d(<1.2cm) 1.2 RV (d.<2.3cm) 5.2 LVPW (sytole) 1.4 LV diastole(<5.6CM) 6.4 MV E-F(>70mm/sec) LV systole 5.4 LVOT Diameter 2.1 MV exc.(>10mm) 1.4 Est.ejection fraction (50-75%) Pericardial Effusion N DOPPLER: LVIT A 86.0 E 113 LA RVSP 45 LVOT 91 AOP1/2T 551 Asc. Ao 154 RVOT RA PA AV Gradient Peak 9.52 AV Mean 3.93 AV Area 2.2 MV Gradient Peak 6.02 MV Mean 2.17 MV Area COMMENTS: Script Reader: Malathi MENDEZ Towing Pilot:Estelita Donnelly TAPE# PACS DATE OF SERVICE: 10/09/2016 Echocardiogram FINDINGS: 1. Left ventricular chamber size is mildly dilated. Left ventricular systolic function is preserved. Overall ejection fraction 50%. 2. Left atrium is enlarged at 4.7 cm. Right atrium and right ventricular chamber sizes are as well rmfh-ae-wugjfuyeuq dilated. 3. Valvular structures have normal structure and motion. ECHOCARDIOGRAM REPORT [id number] JONAH WATERS 4. Doppler interrogation reveals thfh-af-mseawtio aortic insufficiency, tthh-iv-ddbaicyd mitral regurgitation, pdsc-dr-ygvvzccb tricuspid regurgitation, no other valvular insufficiency or stenosis. Pulmonary systolic pressure is mildly elevated, estimated at 45 mmHg. 5. No evidence of pericardial effusion or left ventricular thrombus. TRANSINT:[id number] Voice Confirmation ID: [id number] DOCUMENT ID: [id number] CANDACE DONNELLY MD at 1623 CC: [id number] DICTATION DATE: 10/09/16 1209 PRINTING WORKER SUPERVISOR: 10/09/16 1304 ADM IN [place] [id number] [place] [id number]
[2016-10-15 16:57] VITALS: BP 174/95
[2016-10-15 20:15] VITALS: BP 150/85
--- NOTE | 2016-10-15 20:34 | NUR ---
RESUMED CARE OF PT, LYING IN BED RESPIRATIONS EVEN AND UNLABORED ON 3LPM VIA NC. AT BEDSIDE, PLAN OF CARE DISCUSSED. KRISHNAN TO GRAVITY. LEFT FOREARM INFUSING NS @ 50. 75 SR ON TELEMETRY. CALL LIGHT IN REACH. WILL CONTINUE TO MONITOR. SEE NURSE ASSESSMENT.
[2016-10-16] VITALS: BP 161/810
[2016-10-16 04:00] VITALS: BP 158/93
--- NOTE | 2016-10-16 05:30 | NUR ---
CALL LIGHT IN REACH. WILL CONTINUE WITH PLAN OF CARE.
[2016-10-16 05:32] LABS: BASOPHILS 0 % (0.0-2.0); EOSINOPHILS 0 % (0-7); HEMATOCRIT 46.5 % (42.0-54.0); HEMOGLOBIN 15.3 g/dL (13.5-17.5); IMMATURE GRANULOCYTES 0.5 % (0-5); LYMPHOCYTES 3.4 % (15-50); MCH 30.7 pg (26.0-34.0); MCHC 32.9 g/dL (31.0-37.0); MCV 93.2 fL (80.0-100.0); MEAN PLATELET VOLUME 11.6 fL (7.4-10.4); MONOCYTES 2.6 % (2-11); NEUTROPHILS 93.5 % (40-80); PLATELET COUNT 201 10x3/uL (130-400); RBC 4.99 10x6/uL (4.20-6.10); RDW 13.5 % (11.5-14.5); WBC 20.1 10x3/uL (4.8-10.8)
[2016-10-16 06:14] LABS: CALC OSMOLALITY 288 mosm/kg (275-300); CALCIUM 8.3 mg/dL (8.5-10.1); CARBON DIOXIDE 31.9 mmol/L (21.0-32.0); CHLORIDE - SERUM 104 mmol/L (98-107); CREATININE - SERUM 0.7 mg/dL (0.6-1.3); GLUCOSE 95 mg/dL (74-106); SODIUM 142 mmol/L (136-145); UREA NITROGEN 30 mg/dL (7-18); eGFR NON AFRICAN AMERICAN > 90 mL/min (90-120)
[2016-10-16 06:15] LABS: POTASSIUM - SERUM 4.5 mmol/L (3.5-5.1)
--- NOTE | 2016-10-16 07:30 | NUR ---
RECEIVED PT IN BED EYES CLOSED RESP UNLABORED NAD NOTED
[2016-10-16 08:00] VITALS: BP 166/93
--- NOTE | 2016-10-16 09:13 | NUR ---
Nutrition consult: Ordered Glucerna 1.0 mara to start at 15 ml/hr and increase slowly to goal rate of 75 ml/hr. Thank you for the consult. RDN following.
--- NOTE | 2016-10-16 11:29 | NUR ---
Patient Name: JONAH HASSAN Admission Status: ER Accout number: [id number] Admission Date: 10-08-2016 : 1945 Admission Diagnosis:CHRONIC OBSTRUCTIVE PULMON DISEASE W ACUTE LOWER RESP I Attending: LUCIO Current LOS: 8 Anticipated DC Date: Planned Disposition: Home Primary Insurance: MEDICARE A & B Discharge Planning Comments: CM met with patient and spouse to discuss discharge planning/needs. The patient will need Home Health services for PEG teaching, PT, and Speech therapy. The patient's home oxygen is supplied by [facility] in [facility] ([phone]). His spouse also states he has a home nebulizer, walker, cane, and a walk-in shower. The patient's spouse states she "Rama Hassan" ([phone]) will be the patient's transportation home. She wishes to discuss home health agency with friends prior to making a decision. She states she manages the patient's medications. KIP list given to patient's spouse. Both patient and spouse agree their home is a safe environment to discharge to. CM to follow/assist as needed with discharge planning/needs. Candy Starch Mold Printer: Charis Sahu RN/CM * Is the patient Alert and Oriented? Yes 0 * How many steps to enter\\exit or inside your home? 2 0 * PCP Adolfo 0 * Pharmacy [facility] 0 * Preadmission Environment Home with Family 0 * ADLs Partial Dependent 0 * Partial ADLs (Assistance needed) Medication Management 0 * Equipment Nebulizer Oxygen Walker 0 * List name and contact numbers for known caregivers / representatives who currently or will assist patient after discharge: Rama Hassan ([phone]) 0 * Community resources currently utilized Home Health 0 * Please name any agencies selected above. To be determined 0 * Additional services required to return to the preadmission environment? Yes 0 * Can the patient safely return to the preadmission environment? Yes 0 * Has this patient been hospitalized within the prior 30 days at any hospital? No 0
[2016-10-16 12:00] VITALS: BP 151/80
--- NOTE | 2016-10-16 15:09 | NUR ---
DCP follow-up note: CM revisited with patient and spouse at bedside. The patient's spouse states they have decided on [facility]. KIP signed and placed on patient's chart. CM spoke with "Mora" at [facility] ([phone]). CM spoke with "Tani" at [facility] who will supply patient's glucerna tube feeding. Orders faxed to [facility]. Case management will follow and assist as needed. Charis Sahu RN/CM
[2016-10-16 16:00] VITALS: BP 166/87
--- NOTE | 2016-10-16 19:00 | NUR ---
RECEIVED REPORT AND ASSUMED PT CARE FROM DAY SHIFT NURSE @ THIS TIME.
[2016-10-16 21:00] VITALS: BP 151/85
[2016-10-17 00:42] VITALS: BP 138/81
[2016-10-17 05:02] LABS: BASOPHILS 0.1 % (0.0-2.0); EOSINOPHILS 0 % (0-7); HEMATOCRIT 44.6 % (42.0-54.0); HEMOGLOBIN 14.8 g/dL (13.5-17.5); IMMATURE GRANULOCYTES 0.5 % (0-5); LYMPHOCYTES 3.6 % (15-50); MCH 30.6 pg (26.0-34.0); MCHC 33.2 g/dL (31.0-37.0); MCV 92.3 fL (80.0-100.0); MEAN PLATELET VOLUME 11.4 fL (7.4-10.4); MONOCYTES 4.1 % (2-11); NEUTROPHILS 91.7 % (40-80); PLATELET COUNT 187 10x3/uL (130-400); RBC 4.83 10x6/uL (4.20-6.10); RDW 13.2 % (11.5-14.5); WBC 16.8 10x3/uL (4.8-10.8)
[2016-10-17 07:18] VITALS: BP 136/82
[2016-10-17 08:03] VITALS: BP 144/77
--- NOTE | 2016-10-17 10:29 | NUR ---
TELEMETRY SR. RESP UL ON 02 3L NC. MEDS GIVEN PER PEG. TUBE FEEDING INFUSING. KRISHNAN INTACT. WILL CONT. PLAN OF CARE.
[2016-10-17 12:11] VITALS: BP 140/76
--- NOTE | 2016-10-17 14:13 | NUR ---
ASSISTS WITH BATH. NORCO 10MG GIVEN PER PEG FOR C/O BACK PAIN. WILL MONITOR.
[2016-10-17 15:52] VITALS: BP 143/76
[2016-10-17 20:30] VITALS: BP 157/83
[2016-10-18 00:10] VITALS: BP 151/77
--- NOTE | 2016-10-18 02:15 | NUR ---
PT RESTING WELL WITHOUT C/O DISTRESS NOTED. NO NEEDS VOICED. CALL LIGHT WITHIN REACH. WILL CONT TO MONITOR.
[2016-10-18 04:20] VITALS: BP 160/84
[2016-10-18 05:04] LABS: BASOPHILS 0 % (0.0-2.0); EOSINOPHILS 0.3 % (0-7); HEMOGLOBIN 14.4 g/dL (13.5-17.5); IMMATURE GRANULOCYTES 0.7 % (0-5); LYMPHOCYTES 11.5 % (15-50); MCH 30.6 pg (26.0-34.0); MCHC 32.7 g/dL (31.0-37.0); MCV 93.4 fL (80.0-100.0); MEAN PLATELET VOLUME 11.4 fL (7.4-10.4); MONOCYTES 8.9 % (2-11); NEUTROPHILS 78.6 % (40-80); PLATELET COUNT 192 10x3/uL (130-400); RBC 4.71 10x6/uL (4.20-6.10); RDW 13.1 % (11.5-14.5); WBC 16.3 10x3/uL (4.8-10.8)
[2016-10-18 05:39] LABS: CALC OSMOLALITY 288 mosm/kg (275-300); CALCIUM 7.9 mg/dL (8.5-10.1); CARBON DIOXIDE 32.9 mmol/L (21.0-32.0); CHLORIDE - SERUM 104 mmol/L (98-107); CREATININE - SERUM 0.6 mg/dL (0.6-1.3); GLUCOSE 99 mg/dL (74-106); POTASSIUM - SERUM 4.3 mmol/L (3.5-5.1); SODIUM 141 mmol/L (136-145); UREA NITROGEN 35 mg/dL (7-18); eGFR NON AFRICAN AMERICAN > 90 mL/min (90-120)
[2016-10-18 08:00] VITALS: BP 129/78
[2016-10-18 08:22] VITALS: BP 160/83
--- NOTE | 2016-10-18 09:04 | NUR ---
IV RESTARTED TO LEFT WRIST WITH 22 GAUE CATH X 2 STICKS AND FLUSHED WITH NS. LINE IS PATENT.
--- NOTE | 2016-10-18 09:48 | NUR ---
TELEMETRY SR. TF INFUSING. UP AMBULATING WITH PT ASSIST. WILL CONT. PLAN OF CARE.
[2016-10-18 12:07] VITALS: BP 135/68
[2016-10-18 16:45] VITALS: BP 146/77
--- NOTE | 2016-10-18 19:18 | NUR ---
RESUMED CARE OF PT, LYING IN BED RESPIRATIONS EVEN AND UNLABORED ON 3LPM VIA NC. 73 SR ON TELEMETRY. LEFT WRIST INFUSING NS @ KVO. PEG TUBE INFUSING GLUCERNA @ 75. KRISHNAN TO GRAVITY. NO NEEDS VOICED AT THIS TIME. WILL CONTINUE TO MONITOR. SEE NURSE ASSESSMENT. CALL LIGHT IN REACH.
--- NOTE | 2016-10-18 23:24 | NUR ---
HAIR PREPARER AT BEDSIDE TO OBTAIN VITALS, CALL LIGHT IN REACH. WILL CONTINUE WITH PLAN OF CARE.
[2016-10-19] VITALS: BP 153/78
[2016-10-19 06:30] LABS: BASOPHILS 0.1 % (0.0-2.0); EOSINOPHILS 0.6 % (0-7); HEMATOCRIT 44.6 % (42.0-54.0); HEMOGLOBIN 14.4 g/dL (13.5-17.5); IMMATURE GRANULOCYTES 0.9 % (0-5); LYMPHOCYTES 14.3 % (15-50); MCH 30.1 pg (26.0-34.0); MCHC 32.3 g/dL (31.0-37.0); MCV 93.1 fL (80.0-100.0); MEAN PLATELET VOLUME 11.3 fL (7.4-10.4); MONOCYTES 8.7 % (2-11); NEUTROPHILS 75.4 % (40-80); PLATELET COUNT 200 10x3/uL (130-400); RBC 4.79 10x6/uL (4.20-6.10); RDW 13.1 % (11.5-14.5); WBC 14.5 10x3/uL (4.8-10.8)
[2016-10-19 07:01] LABS: CALC OSMOLALITY 285 mosm/kg (275-300); CALCIUM 8.8 mg/dL (8.5-10.1); CARBON DIOXIDE 33.5 mmol/L (21.0-32.0); CHLORIDE - SERUM 104 mmol/L (98-107); CREATININE - SERUM 0.7 mg/dL (0.6-1.3); GLUCOSE 99 mg/dL (74-106); SODIUM 142 mmol/L (136-145); eGFR NON AFRICAN AMERICAN > 90 mL/min (90-120)
[2016-10-19 07:05] LABS: UREA NITROGEN 22 mg/dL (7-18)
[2016-10-19 08:00] VITALS: BP 160/90
[2016-10-19 12:00] VITALS: BP 141/72
[2016-10-19] MEDS ORDERED: CLEOCIN HCL300 MG PO (15:30)
[2016-10-19] MEDS ORDERED: BREO ELLIPTA 11 EACH INH (15:30)
[2016-10-19] MEDS ORDERED: LEVAQUIN500 MG PO (15:30)
[2016-10-19] MEDS ORDERED: PLAVIX75 MG PO (15:30)
[2016-10-19 16:00] VITALS: BP 150/79
--- NOTE | 2016-10-19 16:03 | NUR ---
Patient Name: JONAH WATERS Encounter No: [id number] : 1945 Primary Insurance: MEDICARE A & B Anticipated DC Date: 10-19-2016 Planned Disposition: Home Health Service External Planned Provider: [facility] / [facility] FOR TUBE FEEDING SUPPLIES DCP follow-up note: RUBY SPOKE TO ARELI BETH WHO REPORTS PT WANTS TO GO HOME TODAY AND ASKED IF ALL HOME HEALTH AND TUBE FEEDING ARRANGEMENTS CAN BE MADE FOR THIS. RUBY CALLED [facility], , SPOKE TO BEN WHO HAD NOT RECEIVED REFERRAL. CM DISCUSSED REFERRAL OVER THE PHONE, INSURANCE WILL NOT COVER GLUCERNA PT IS NOT DIABETIC. BEN ADVISED THAT THEY MAY NOT BE ABLE TO DELIVER THE FEEDING SUPPLIES UNTIL TOMORROW. RUBY SPOKE TO DR. ARAUJO WHO ORDERED JEVITY 1.5 FOR HOME TUBE FEEDING. CM FAXED REFERRAL INFORMATION TO [facility] IN [place], . CM SPOKE TO PT AND SPOUSE IN ROOM, PT REPORTS HE WILL BE GOING HOME TODAY; PT'S SPOUSE REPORTS ABILITY TO PERFORM TUBE FEEDINGS IF SUPPLIES ARE NOT DELIVERED UNTIL TOMORROW. IMPORTANT MESSAGE FROM MEDICARE PROVIDED AND EXPLAINED. RUBY VERIFIED HOME ADDRESS AND PHONE NUMBER: [phone] [place] [address]. [id number] HOME: [phone] / CELL [phone] CM CALLED AND SPOKE TO PRIYA OF [facility], , WHO WILL HAVE HOME HEALTH NURSE SCHEDULED FOR FOLLOW UP WITH PT AND SPOUSE AT HOME TOMORROW. FOR DISCHARGE, NOTIFY [facility] AT [phone], FAX DISCHARGE INFORMATION TO [facility] AT [phone]. RUBY WAITING VERIFICATION OF TUBE FEEDING ARRANGEMENT / INSURANCE AUTHORIZATION FROM BEN OF [facility], . Duy Headley, CASE MANAGEMENT
--- NOTE | 2016-10-19 16:54 | NUR ---
Patient Name: JONAH WATERS Encounter No: [id number] : 1945 Primary Insurance: MEDICARE A & B Anticipated DC Date: 10-19-2016 Planned Disposition: Home Health Service External Planned Provider: [facility] DCP follow-up note: CM RECEIVED CALL FROM NGUYEN WHO REPORTED THAT A QUALITY MANAGEMENT COORDINATOR IS ON THE WAY TO [facility] TO DELIVER TUBE FEEDING MATERIAL AND SUPPLIES TO PT BEFORE DISCHARGE HOME, SHE HAS SPOKEN TO PT'S WHO IS AWARE. CM SPOKE TO PT AND SPOUSE IN ROOM, VERIFIED ARRANGEMENTS, NOTIFIED OF HOME HEALTH FOR TOMORROW MORNING. PT AND SPOUSE DENIED FURTHER DISCHARGE NEEDS. CM FAXED DISCHARGE INFORMATION TO PRIYA AT [phone], NOTIFIED PRIYA OF DISCHARGE AT [phone]. Duy Headley, CASE MANAGEMENT
--- NOTE | 2016-10-19 18:00 | NUR ---
REVIEWED DISCHARGE INSTRUCTION WITH PT AND WIFEW STATE UNDERSTANDING COPY GIVE TO PT SALINE LOCK DCD TO LT WRIST WITH IV CATHETER INTACT NO REDNESS OR EDEMA NOTED AT SITE PEG TUBE FLUSHED AND CLAMPED PT DISCHARGED HOME LEFT UNIT VIA W/C IN STABLE CONDITION WITH ALL PERSONAL BELONGINGS
--- NOTE | 2016-10-20 10:09 | OP ---
PATIENT NAME: JONAH WATERS MEDICAL RECORD: [id number] :[birth year] LOCATION:D. D.2116 ADMISSION DATE:10/08/16 SURGEON: EDMUND REICH MD DATE OF OPERATION: 10/15/2016 PREOPERATIVE DIAGNOSES: 1. Dysphagia. 2. Cerebrovascular accident. 3. Coronary artery disease. POSTOPERATIVE DIAGNOSES: 1. Dysphagia. 2. Cerebrovascular accident. 3. Coronary artery disease. PROCEDURE: PEG tube placement. SURGEON: Edmund Reich MD REPORT OF PROCEDURE: Olympus endoscope was advanced through the mouth and esophagus into the stomach. The stomach had a lot of inflammatory changes present consistent with gastritis. We were able to find an area on the antrum of the stomach to house our PEG tube. A total of 5 cc of 1% lidocaine with epinephrine was infused into the surrounding tissues. A skin incision was then made with an 11 blade. Through the skin incision, we were able to place an Angiocath needle through the abdominal wall and into the lumen of the stomach. Wire was advanced through the Angiocath and this was grasped with the endoscope. This was pulled out the mouth and esophagus. The PEG tube was affixed to the wire and the wire and PEG tube were pulled through the abdominal wall, resting in good position at 3 cm at the skin. This was affixed into place appropriately. We then placed the scope back down through the mouth and esophagus and saw there was no sign of any active bleeding. At this point, the insufflation and the scope were removed. COMPLICATIONS: None. CONDITION: Stable. ANESTHESIA: TIVA. BLOOD LOSS: Minimal. TRANSINT:[id number] Voice Confirmation ID: [id number] DOCUMENT ID: [id number] EDMUND REICH MD at 1009 CC: TERESA CALIX M.D. [id number] DICTATION DATE: 10/15/16 1400 MEDICAL POLICY SPECIALIST: 10/15/16 1522 DIS IN 10/19/16 [place] [id number] [place] [address]
--- NOTE | 2016-11-04 09:12 | CN ---
PATIENT NAME:JONAH WATERS MEDICAL RECORD: [id number] : [birth year] LOCATION:[facility] D.2116 ADMIT DATE: 10/08/16 ACCOUNT: [id number] CONSULTING PHYSICIAN: LEIGHA BILLS MD REFERRING PHYSICIAN: TERESA CALIX M.D. DATE OF CONSULTATION: 10/09/2016 Pulmonary Consultation CONSULT REQUESTING PHYSICIAN: Teresa Calix MD REASON FOR CONSULTATION: Pneumonia, right lower lobe, right parapneumonic pneumonia, acute exacerbation of COPD. HISTORY OF PRESENT ILLNESS: Mr. Waters a 71-year-old gentleman who has more than 50-year pack history of smoking. The patient was sick since last Wednesday. He was seen in Dr. Araujo's office and he was given some antibiotic, but the patient had worsening shortness of breath, then the patient came into the ER, found out that he has right lower lobe pneumonia with effusion. He is also having fever and chills. He has cough without much sputum production. Denies any chest pain. REVIEW OF SYSTEMS: Mainly in the history of present illness. PAST MEDICAL HISTORY: 1. COPD. 2. Hypertension. 3. History of coronary artery disease and myocardial infarction. 4. Peripheral vascular disease. 5. History of pneumonia in the past. 6. Chronic hypoxic respiratory failure with oxygen at night. PAST SURGICAL HISTORY: 1. Cardiac catheterization, status post stent placement. 2. Back surgery. 3. Neck fusion. 4. History of carpal tunnel syndrome. ALLERGIES: HE IS ALLERGIC TO PENICILLIN. PRESENT MEDICATIONS: He is on meropenem, albuterol/ipratropium nebulizer. His other medication is reviewed. PERSONAL AND SOCIAL HISTORY: The patient is and lives with his . He still continues to smoke a pack a day. He was smoking 2 packs a day for more than 50 years. He is a nondrinker. FAMILY HISTORY: Noncontributory. PHYSICAL EXAMINATION: GENERAL: Now, the patient is lying comfortably. He is not in acute distress. VITAL SIGNS: The blood pressure 144/59, pulse is 65, respiration is 22, temperature is 98.1, and SPO2 is 97% on 3 liters nasal cannula. HEENT: Conjunctiva are pink. The sclerae are nonicteric. NECK: Supple. No JVD. CONSULT REPORT [id number] JONAH WATERS CHEST: The chest excursion is minimal on the right side. There are wheezing. There are crackles. HEART: Rhythm regular, normal sound, no murmur. ABDOMEN: Soft. Bowel sounds present. No hepatosplenomegaly. RECTAL: Deferred. EXTREMITIES: No cyanosis, no clubbing, no pedal edema. SKIN: Warm, normal turgor. CENTRAL NERVOUS SYSTEM: The patient is awake and alert. There is no obvious cranial nerve abnormality. The gait was not tested. LABORATORY DATA: CBC: The WBC is 14.9, hemoglobin 14.2, hematocrit 43.5, the platelet count is 136. The neutrophils are 88.4%. ABG: The pH was 7.40, pCO2 was 47.1, the pO2 was 62, the bicarbonate was 30.9, this was done on 4-liter nasal cannula. IMPRESSION: 1. Ldsjq-qz-zbycvxg hypoxic respiratory failure. 2. Acute exacerbation of chronic obstructive pulmonary disease. 3. Pneumonia, right lower lobe, most likely consistent with a community-acquired pneumonia. 4. Right pleural effusion, which is parapneumonic. 5. Tobacco dependence syndrome, more than 68-fsmv-cpcw history of smoking. 6. Coronary artery disease with elevated cardiac enzyme. 7. Leukocytosis. RECOMMENDATION: 1. Continue supplemental oxygen. 2. Meropenem. I will add Levaquin for atypical as well as for Gram-negative rods. 3. Methylprednisolone IV. 4. Brovana and budesonide nebulizer. 5. Albuterol and ipratropium nebulizer. We will check the decubitus chest x-ray. If there is significant amount of fluid, we will proceed with thoracentesis. 6. Leukocytosis has been improving. Follow up labs and chest radiograph. Dr. Calix, once again, thank you for involving me in the care of Mr. Waters. TRANSINT:[id number] Voice Confirmation ID: [id number] DOCUMENT ID: [id number] LEIGHA BILLS MD at 0912 CC: ENZO ARAUJO DO [id number] DICTATION DATE: 10/09/16 1414 SCROLL MACHINE OPERATOR: 10/09/16 1507 DIS IN 10/19/16 [place] [id number] [place] [address]
[2016-11-11 07:23] LABS: FUNGUS MYCOLOGY CULTURE Final report (())
[2016-12-03 12:16] LABS: ACID FAST CULTURE Negative (()); ACID FAST SMEAR Negative (())
== END 2016-10-19 18:00 | disposition home health service (06) | DRG 246 ==
LOC: D.ER 13:35 → D.MS 15:12 → D.M2 15:12
PROVIDERS: Emergency Medicine; Family Medicine Adult Medicine; General Practice; Internal Medicine Interventional Cardiology; Internal Medicine Pulmonary Disease; ADMIT Family Medicine
PROC: 4A023N7 Measurement of Cardiac Sampling and Pressure, Left Heart, Percutaneous Approach (ICD-10-PCS; 2016-10-09)
PROC: B2111ZZ Fluoroscopy of Multiple Coronary Arteries using Low Osmolar Contrast (ICD-10-PCS; 2016-10-09)
PROC: B2151ZZ Fluoroscopy of Left Heart using Low Osmolar Contrast (ICD-10-PCS; 2016-10-09)
PROC: 027034Z Dilation of Coronary Artery, One Artery with Drug-eluting Intraluminal Device, Percutaneous Approach (ICD-10-PCS; 2016-10-09 14:30)
PROC: 0T9B70Z Drainage of Bladder with Drainage Device, Via Natural or Artificial Opening (ICD-10-PCS; principal; 2016-10-12)
PROC: 0W993ZZ Drainage of Right Pleural Cavity, Percutaneous Approach (ICD-10-PCS; 2016-10-13)
DX: I25.119 Atherosclerotic heart disease of native coronary artery with unspecified angina pectoris (principal); J18.9 Pneumonia, unspecified organism; J96.21 Acute and chronic respiratory failure with hypoxia; I63.9 Cerebral infarction, unspecified; J44.0 Chronic obstructive pulmonary disease with (acute) lower respiratory infection; J90 Pleural effusion, not elsewhere classified; I24.8 Other forms of acute ischemic heart disease; F17.203 Nicotine dependence unspecified, with withdrawal; J44.1 Chronic obstructive pulmonary disease with (acute) exacerbation; I10 Essential (primary) hypertension; Z99.81 Dependence on supplemental oxygen; I73.9 Peripheral vascular disease, unspecified; N40.0 Benign prostatic hyperplasia without lower urinary tract symptoms; R29.810 Facial weakness

== ENCOUNTER → 2016-11-25 09:07 | Outpatient (CLI) | payer MEDICARE, BC ==
[2016-10-09 13:40] VITALS: BMI 19.9
[~2016-11-25 09:07] MED LIST changes: +BREO ELLIPTA 11 EACH INH; +CLEOCIN HCL300 MG PO; +CO Q-1030 MG PO; +HAWTHORNE BERRY PO; +LEVAQUIN500 MG PO; +NORVASC5 MG PO; +OMEPRAZOLE20 M1 PO; +PROSCAR5 MG PO
== END | disposition home or self-care (01) ==
LOC: D.RAD 09:07
DX: R13.10 Dysphagia, unspecified (principal)

== ENCOUNTER 2017-06-03 11:24 | Inpatient (IN) | payer MEDICARE, BC ==
[~2017-06-03] VITALS: Ht 172.7 cm; Wt 70.2 kg
--- NOTE | ~2017-06-03 | CN ---
PATIENT NAME:JONAH WATERS MEDICAL RECORD: [id number] : [birth year] LOCATION:D.MS Fry2228 ADMIT DATE: 06/03/17 ACCOUNT: [id number] CONSULTING PHYSICIAN: LEIGHA BILLS MD REFERRING PHYSICIAN: LOGAN KIDD MD DATE OF CONSULTATION: 06/03/2017 CONSULT REQUESTING PHYSICIAN: Logan Kidd MD. REASON FOR CONSULTATION: Pneumonia, acute exacerbation of chronic obstructive pulmonary disease. HISTORY OF PRESENT ILLNESS: Mr. Waters is a 71-year-old gentleman who has a history of COPD. According to the patient, he is sick for the last 2 days, he has worsening shortness of breath, wheezing, coughing, the breathing was worse this morning. The patient was directly admitted from Dr. Araujo's office. REVIEW OF SYSTEMS: HEENT: There is no sinus congestion. GENERAL: No fever and chills. RESPIRATORY: As in history of present illness. CARDIOVASCULAR: Negative. GASTROINTESTINAL: No nausea, vomiting or diarrhea. GENITOURINARY: Negative. Other review of the systems is negative. PAST MEDICAL HISTORY: 1. COPD. 2. History of pneumonia. 3. Hypertension. 4. History of coronary artery disease. 5. Peripheral vascular disease. 6. History of pleural effusions in the past. 7. Chronic hypoxic respiratory failure with oxygen at night. PAST SURGICAL HISTORY: 1. Cardiac catheterization and stent placement. 2. Back surgery. 3. Neck fusion. 4. History of carpal tunnel syndrome repair. ALLERGIES: HE IS ALLERGIC TO PENICILLIN. PRESENT MEDICATIONS: On LaTherm was reviewed. PERSONAL AND SOCIAL HISTORY: The patient was a lifelong smoker. He quit quitted September last year. He is a nondrinker. FAMILY HISTORY: Noncontributory. PHYSICAL EXAMINATION: GENERAL: Now, the patient is lying comfortably at bed. He is not in acute distress. VITAL SIGNS: The blood pressure is 123/63, pulse is 59, respirations 16, temperature 97.9, SpO2 of 97% on 2 liters nasal cannula. CONSULT REPORT [id number] JONAH WATERS HEENT: Conjunctivae are pink. Sclerae nonicteric. NECK: Supple, no JVD. CHEST: The chest excursion is minimal on both sides. There are wheeze on forceful expiration. HEART: Rhythm regular, normal sound, no murmur. ABDOMEN: Soft. Bowel sounds present. No hepatosplenomegaly. RECTAL: Deferred. EXTREMITIES: No cyanosis, no clubbing, no pedal edema. SKIN: Warm, normal turgor. CENTRAL NERVOUS SYSTEM: The patient is awake and alert. There is no obvious cranial nerve abnormality. The gait was not tested. CHEST RADIOGRAPH: There is a pneumonia, right middle lobe. OTHER LABORATORY DATA: CBC: The WBC 10.8, hemoglobin 12, hematocrit 38.8, the platelet count 264. Chemistry: Sodium 141, potassium 4.1, BUN is 18, creatinine 1.2. IMPRESSION: 1. Acute exacerbation of chronic obstructive pulmonary disease. 2. Pneumonia, right middle lobe. 3. Acute cough. 4. Coronary artery disease. 5. Dyspnea on exertion. 6. Ex-smoker. 7. Chronic hypoxic respiratory failure on home oxygen dependent at night. RECOMMENDATION: 1. Methylprednisolone IV, Zithromax and Rocephin IV, albuterol/ipratropium nebulizer, Brovana and budesonide nebulizer. 2. Supplemental oxygen is required. I will proceed with CT scan of the chest to rule out any obstructive cause for the pneumonia. Dr. Kidd, thank you for involving me in the care of Mr. Waters. TRANSINT:[id number] Voice Confirmation ID: [id number] DOCUMENT ID: [id number] LEIGHA BILLS MD CC: ENZO ARAUJO DO [id number] DICTATION DATE: 06/03/17 1544 MANAGER AREA: 06/03/172223 ADM IN [place] [id number] [place] [address]
[2017-06-03 12:20] LABS: BASOPHILS 0.2 % (0-2); EOSINOPHILS 0.9 % (0-7); HEMATOCRIT 38.8 % (42.0-54.0); IMMATURE GRANULOCYTES 0.6 % (0-5); LYMPHOCYTES 19.9 % (15-50); MCH 25.6 pg (26.0-34.0); MCHC 30.9 g/dL (31.0-37.0); MCV 82.7 fL (80.0-100.0); MEAN PLATELET VOLUME 10.5 fL (7.4-10.4); MONOCYTES 13.5 % (2-11); NEUTROPHILS 64.9 % (40-80); RBC 4.69 10x6/uL (4.20-6.10); RDW 14.3 % (11.5-14.5); WBC 10.8 10x3/uL (4.8-10.8)
[2017-06-03 12:24] LABS: APPEARANCE CLEAR (CLEAR); BILIRUBIN NEGATIVE (NEGATIVE); COLOR YELLOW (YELLOW); GLUCOSE NEGATIVE (NEGATIVE); KETONE NEGATIVE (NEGATIVE); LEUKOCYTE ESTERASE NEGATIVE (NEGATIVE); NITRITE NEGATIVE (NEGATIVE); PROTEIN NEGATIVE (NEGATIVE); UROBILINOGEN NORMAL (NORMAL)
--- NOTE | 2017-06-03 12:30 | NUR ---
RECEIVED TO FLOOR, ORIENTED TO ROOM, DENIES NEEDS, WILL CONTINUE TO MONITOR
[2017-06-03 12:31] LABS: ALBUMIN 3.6 g/dL (3.4-5.0); BILIRUBIN - TOTAL 0.66 mg/dL (0.2-1.3); CALCIUM 8.6 mg/dL (8.5-10.1); CARBON DIOXIDE 32.1 mmol/L (21.0-32.0); CREATININE - SERUM 1.2 mg/dL (0.6-1.3); POTASSIUM - SERUM 4.1 mmol/L (3.5-5.1); PROTEIN - SERUM 6.7 g/dL (6.4-8.2)
[2017-06-03 12:32] LABS: PLATELET COUNT 264 10x3/uL (130-400)
[2017-06-03 14:08] VITALS: BP 123/63; BMI 22.8
[2017-06-03 14:21] VITALS: BP 118/67
[2017-06-03 17:01] VITALS: BP 142/76
--- NOTE | 2017-06-03 19:30 | NUR ---
ASSESSMENT PER FLOW SHEET.PT WITHOUT DISTRESS.DENIES PAIN AT PRESENT.CALL LIGHT IN REACH.DOOR OPEN TO MONITOR
[2017-06-03 20:00] VITALS: BP 149/62
[2017-06-04] VITALS: BP 121/61
--- NOTE | 2017-06-04 00:54 | NUR ---
WITHOUT DISTRESS,SLEEPING ON RIGHT SIDE DOOR OPEN TO MONITOR
--- NOTE | 2017-06-04 02:34 | NUR ---
UP AT BEDSIDE USING URINAL.REMAINS WITHOUT DISTRESS
[2017-06-04 04:00] VITALS: BP 138/66
--- NOTE | 2017-06-04 05:50 | NUR ---
AWAKENS INT.IV MEDS PER MAR ORDERED.WITHOUT CNAGE.CONT PLAN OF CARE
[2017-06-04 07:03] LABS: HEMATOCRIT 33.7 % (42.0-54.0); HEMOGLOBIN 10.6 g/dL (13.5-17.5); LYMPHOCYTES 11.5 % (15-50); MCH 25.7 pg (26.0-34.0); MCHC 31.5 g/dL (31.0-37.0); MCV 81.6 fL (80.0-100.0); MEAN PLATELET VOLUME 10.2 fL (7.4-10.4); PLATELET COUNT 234 10x3/uL (130-400); RBC 4.13 10x6/uL (4.20-6.10); WBC 9.4 10x3/uL (4.8-10.8)
--- NOTE | 2017-06-04 07:05 | NUR ---
PATIENT RECEIVED IN RIGHT LATERAL POSITION RESTING QUIETLY. RESPIRATIONS EVEN AND UNLABORED. DENIES NEEDS. BED IN LOW POSITION. CALL LIGHT IN REACH.
[2017-06-04 07:10] LABS: ANION GAP 10.3 mmol/L (8-16); CALCIUM 8.4 mg/dL (8.5-10.1); CARBON DIOXIDE 28.5 mmol/L (21.0-32.0); CREATININE - SERUM 1.1 mg/dL (0.6-1.3)
[2017-06-04 07:11] LABS: POTASSIUM - SERUM 4.8 mmol/L (3.5-5.1)
[2017-06-04 08:32] VITALS: BP 132/80
--- NOTE | 2017-06-04 08:36 | NUR ---
Patient Name: JONAH WATERS Admission Status: Elective Accout number: [id number] Admission Date: 06-03-2017 : 1945 Admission Diagnosis:CHRONIC OBSTRUCTIVE PULMON DISEASE W ACUTE LOWER RESP I Attending: MIHIR RUIZ Current LOS: 1 Anticipated DC Date: 06-07-2017 Planned Disposition: Home with Home Health Primary Insurance: MEDICARE A & B Discharge Planning Comments: CM MET WITH PATIENT REGARDING D/C NEEDS AND PLANS. PATIENT STATED HE LIVES ALONE AND FAMILY AND FRIENDS CHECK ON HIM DAILY. PATIENT STATED THERE IS ONE STEP TO ENTER HOME AND NO STAIRS INSIDE. PATIENT IS INDEPENDENT WITH HIS CARE AND HAS A WALKER, CANE, BENCH, OXYGEN, PORT OXYGEN, AND NEBULIZER AT HOME. PATIENTS PCP IS DR. ARAUJO AND USES [facility]. PATIENT IS CURRENT WITH [facility]. CM WILL CONTINUE TO FOLLOW PATIENT WITH D/C NEEDS AND PLANS. PCP DR[facility]- [phone] GENEVIEVE RIOS (NEPHEW) [phone] BHAVNA RIOS( BROTHER) [phone] Food Science Technician: Marixa Rothman Is the patient Alert and Oriented? Yes 0 * How many steps to enter\exit or inside your home? 1 0 * PCP DR. ARAUJO 0 * Pharmacy [facility] 0 * Preadmission Environment Home Alone 0 * ADLs Independent 0 * Equipment Cane Nebulizer Walker 0 * Other Equipment BENCH BUILT IN SHOWER, PORTABLE O2 0 * List name and contact numbers for known caregivers / representatives who currently or will assist patient after discharge: GENEVIEVE RIOS [phone] (NEPHEW) BHAVNA RIOS [phone] (BROTHER) 0 * Community resources currently utilized Home Health 0 * Please name any agencies selected above. [facility] 0 * Additional services required to return to the preadmission environment? Yes 0 * Can the patient safely return to the preadmission environment? Yes 0 * Has this patient been hospitalized within the prior 30 days at any hospital? No 0 Grand Total: 0
--- NOTE | 2017-06-04 09:17 | NUR ---
PATIENT N LEFT LATERAL POSITION RESTING QUIETLY WITH EYES CLOSED. RESPIRATIONS EVEN AND UNLABORED. WAKES EASY. SCHEDULED MEDICATION ADMINISTERED. SIDE RAILS UP X2. BED IN LOW POSITION. CALL LIGHT IN REACH.
--- NOTE | 2017-06-04 12:03 | NUR ---
ALERT IN BED VISITING WITH FAMILY. NO SIGNS OF DISTRESS NOTED. IV ABX INITIATED PER ORDER. DENIES NEEDS. SIDE RAILS UP X2. BED IN LOW POSITION. CALL LIGHT IN REACH.
[2017-06-04 14:13] VITALS: BP 134/78
[2017-06-04 16:46] VITALS: BP 149/70
--- NOTE | 2017-06-04 19:00 | NUR ---
REC REPORT, ASSUMED CARE OF PATIENT. ALERT/AWAKE C/O BACK PAIN LEVEL 6 ON NUMBER SCALE, DESCRIBED ACHING/THROBBING. ON 02 AT 3L/NC. RR 18 EVEN U/L. SOB OBSERVED WITH EXERTION. ORIENTED TO CL FOR ANY NEEDS.
[2017-06-04 20:00] VITALS: BP 150/56
[2017-06-05 00:08] VITALS: BP 146/72
--- NOTE | 2017-06-05 02:29 | NUR ---
PATIENT LAYING IN HIS RIGHT SIDE, NO SIGNS OF DISTRESS NOTED. WILL CONTINUE TO MONITOR.
[2017-06-05 04:00] VITALS: BP 158/68
[2017-06-05 04:32] LABS: BASOPHILS 0 % (0-2); EOSINOPHILS 0 % (0-7); HEMATOCRIT 35.5 % (42.0-54.0); HEMOGLOBIN 10.8 g/dL (13.5-17.5); IMMATURE GRANULOCYTES 0.5 % (0-5); LYMPHOCYTES 4.3 % (15-50); MCH 25.4 pg (26.0-34.0); MCHC 30.4 g/dL (31.0-37.0); MCV 83.3 fL (80.0-100.0); MEAN PLATELET VOLUME 10.2 fL (7.4-10.4); MONOCYTES 4.6 % (2-11); NEUTROPHILS 90.6 % (40-80); PLATELET COUNT 240 10x3/uL (130-400); RBC 4.26 10x6/uL (4.20-6.10); RDW 14.3 % (11.5-14.5); WBC 18.4 10x3/uL (4.8-10.8)
[2017-06-05 04:54] LABS: CALC OSMOLALITY 281 mosm/kg (275-300); CALCIUM 8.8 mg/dL (8.5-10.1); CARBON DIOXIDE 28.7 mmol/L (21.0-32.0); CHLORIDE - SERUM 104 mmol/L (98-107); GLUCOSE 132 mg/dL (74-106); POTASSIUM - SERUM 4.8 mmol/L (3.5-5.1); SODIUM 138 mmol/L (136-145); UREA NITROGEN 25 mg/dL (7-18); eGFR NON AFRICAN AMERICAN 78 mL/min (90-120)
--- NOTE | 2017-06-05 07:30 | NUR ---
RESTING QUIETLY IN BED WITH EYES CLOSED. RESP EVEN,NONLABORED.
--- NOTE | 2017-06-05 08:30 | NUR ---
ASSESSMENT COMPLETE. SL TO L FA. O2 3L NC IN USE. SOB ON EXERTION. DENIES ANY NEEDS AT THIS TIME.
[2017-06-05 09:50] VITALS: BP 160/75
[2017-06-05 11:51] VITALS: BP 134/59
--- NOTE | 2017-06-05 14:30 | NUR ---
DENIES ANY NEEDS AT THIS TIME.
[2017-06-05 16:20] VITALS: BP 145/62
--- NOTE | 2017-06-05 17:00 | NUR ---
SITTING UP EATING DINNER. NO CHANGES NOTED AT PRESENT.
[2017-06-05 20:00] VITALS: BP 109/63
--- NOTE | 2017-06-05 23:04 | NUR ---
RN NOTE: PT RESTING ON RIGHT SIDE WITH EASY RESPIRATIONS. IV IN LEFT FA PATENT WITH NS INFUSING AT 75 ML / HR. O2 IN USE AT 2L VIA NC. WILL CONTINUE TO MONITOR FOR NEEDS. CALL LIGHT WITHIN REACH.
[2017-06-06 04:00] VITALS: BP 129/75
[2017-06-06 04:38] LABS: BASOPHILS 0 % (0-2); EOSINOPHILS 0 % (0-7); HEMATOCRIT 33.3 % (42.0-54.0); HEMOGLOBIN 9.9 g/dL (13.5-17.5); IMMATURE GRANULOCYTES 0.7 % (0-5); LYMPHOCYTES 6.6 % (15-50); MCHC 29.7 g/dL (31.0-37.0); MCV 84.1 fL (80.0-100.0); MEAN PLATELET VOLUME 10.1 fL (7.4-10.4); MONOCYTES 7.7 % (2-11); PLATELET COUNT 222 10x3/uL (130-400); RBC 3.96 10x6/uL (4.20-6.10); RDW 14.6 % (11.5-14.5); WBC 17.7 10x3/uL (4.8-10.8)
[2017-06-06 04:46] LABS: CALC OSMOLALITY 288 mosm/kg (275-300); CALCIUM 8.5 mg/dL (8.5-10.1); CARBON DIOXIDE 27.3 mmol/L (21.0-32.0); CHLORIDE - SERUM 109 mmol/L (98-107); GLUCOSE 109 mg/dL (74-106); POTASSIUM - SERUM 4.6 mmol/L (3.5-5.1); SODIUM 142 mmol/L (136-145); UREA NITROGEN 26 mg/dL (7-18); eGFR NON AFRICAN AMERICAN 78 mL/min (90-120)
--- NOTE | 2017-06-06 07:25 | NUR ---
SLEEPING AT THIS TIME WITH RESPIRATIONS EVEN AND NON LABORED. OXYGEN ON 3L VIA NC. CALL LIGHT IN REACH. SR X2 WITH BED IN LOWEST POSITION AND WHEELS LOCKED. WILL CONTINUE WITH PLAN OF CARE.
[2017-06-06 08:00] VITALS: BP 154/74
--- NOTE | 2017-06-06 09:19 | NUR ---
SCHEDULED MEDICATIONS ADMINISTERED AT THIS TIME. DENIES NEEDS. PROVIDED WITH FRESH ICE WATER. CALL LIGHT IN REACH, WILL CONTINUE WITH PLAN OF CARE.
[2017-06-06 11:00] VITALS: BP 148/69
[2017-06-06 14:22] LABS: % SATURATION 5 % (15-55); IRON 19 ug/dl (35-150); TOTAL IRON BIND CAPACITY 320 ug/dl (260-445); UNSAT IRON BIND CAPACITY 301 ug/dl (150-375)
[2017-06-06 15:00] VITALS: BP 140/60
[2017-06-06 20:00] VITALS: BP 154/65
--- NOTE | 2017-06-06 21:23 | NUR ---
22G PIV FROM DISTAL LFA D/C WITH CATH INTACT AFTER NOTED TO BE LEAKING. 20G PIV STARTED IN LFA PROXIMAL TO PREVIOUS IV SITE. NS INFUSING @75mL/HR.
[2017-06-07] VITALS (7 sets, daily range): BP systolic 146–166; BP diastolic 67–82
--- NOTE | 2017-06-07 00:50 | NUR ---
RN NOTE: PT RESTING QUIETLY IN SEMI SULLIVAN'S POSITION WITH EYES CLOSED AND EASY RESPIRATIONS. IV IN LEFT FA PATENT WITH NS INFUSING AT 50 ML / HR. O2 IN USE AT 2.5 L VIA NC. WILL CONTINUE TO MONITOR FOR NEEDS.
[2017-06-07 03:35] LABS: BASOPHILS 0 % (0-2); EOSINOPHILS 0 % (0-7); HEMATOCRIT 34.2 % (42.0-54.0); HEMOGLOBIN 10.5 g/dL (13.5-17.5); IMMATURE GRANULOCYTES 0.9 % (0-5); LYMPHOCYTES 4.9 % (15-50); MCH 25.5 pg (26.0-34.0); MCHC 30.7 g/dL (31.0-37.0); MEAN PLATELET VOLUME 10.3 fL (7.4-10.4); MONOCYTES 5.3 % (2-11); NEUTROPHILS 88.9 % (40-80); PLATELET COUNT 205 10x3/uL (130-400); RBC 4.12 10x6/uL (4.20-6.10); RDW 14.5 % (11.5-14.5); WBC 15.2 10x3/uL (4.8-10.8)
[2017-06-07 03:48] LABS: CALC OSMOLALITY 285 mosm/kg (275-300); CALCIUM 8.4 mg/dL (8.5-10.1); CHLORIDE - SERUM 106 mmol/L (98-107); CREATININE - SERUM 0.9 mg/dL (0.6-1.3); GLUCOSE 113 mg/dL (74-106); POTASSIUM - SERUM 4.4 mmol/L (3.5-5.1); SODIUM 142 mmol/L (136-145); eGFR NON AFRICAN AMERICAN 88 mL/min (90-120)
[2017-06-07 03:49] LABS: UREA NITROGEN 17 mg/dL (7-18)
--- NOTE | 2017-06-07 07:28 | NUR ---
PT ASLEEP AT THIS TIME WITH NO VISABLE SIGNS OF PAIN OR DISCOMFORT AT THIS TIME. BED IN LOW POSITION AND CALL LIGHT WIIN REACH. WILL CONTINUE TO MONITOR.
--- NOTE | 2017-06-07 07:33 | NUR ---
PT ASSESSMENT COMPLETE AWAKE AND ALERT ORIENTED X 3 LUNGS CLEAR BILATERALLY. BS HYPPOACTIVE X 4 QUADS. HARD OF HEARING PIV PATENT TO IVF PER ORDER DENIES PAIN AT THIS ITME SHOERT OF BREATH WITH MINIMAL EXERTION NOTED.
--- NOTE | 2017-06-07 11:43 | NUR ---
PT HAS HAD SHOWER PER ASSIST OF STAFF. TOLERATED WELL. ALL ADLS PER STAFF
--- NOTE | 2017-06-07 19:00 | NUR ---
Received patient resting in bed with eyes open, assessment completed per flowsheet. Patient AOx4, calm and cooperative. Eyes PERRLA @ 4mm with brisk response, sclera is white. S1/S2 noted rhythmic and regular. Breathing is dyspneic and labored on 2.5L via NC, expiratory wheeze noted bilateral upper and mid with diminished lower. Abdomen is soft and flat with bowel sounds active x4, non-tender. Full ROM all extremities with all pulses palpable, cap refill < 3 sec. Patient c/o chronic aching back pain /, repostioned for comfort and will provide PRN medication on request. No further needs at this time, all VSS and will continue to monitor.
--- NOTE | 2017-06-07 21:00 | NUR ---
Patient resting in bed with eyes closed, HS meds given without difficulty. Patient denies further needs at this time, all VSS and will continue to monitor.
--- NOTE | 2017-06-07 23:00 | NUR ---
Reassessment completed per flowsheet, patient resting in bed with eyes closed. S1/S2 noted rhythmic and regular. Breathing is labored on dyspneic on 2.5L via NC, expiratory wheeze noted bilateral upper and mid with diminished lower. All pulses palpable with cap refill < 3 sec, skin warm/dry to touch. Denies further needs at this time, all VSS and will continue to monitor.
--- NOTE | 2017-06-08 01:00 | NUR ---
Patient resting in bed with eyes closed, denies needs at this time. All VSS and will continue to monitor.
--- NOTE | 2017-06-08 03:00 | NUR ---
Reassessment completed, patient resting in bed with eyes closed. Patient AO x4, calm and cooperative. S1/S2 noted rhythmic and regular. Breathing is even and unlabored on 2.5L via NC, O2 sat 96%. All pulses palpable with cap refill < 3 sec, skin is warm/dry to touch. Patient denies pain or other needs at this time, all VSS and will continue to monitor.
[2017-06-08 03:15] VITALS: BP 151/66
--- NOTE | 2017-06-08 05:00 | NUR ---
Patient resting in bed with eyes closed, breathing is even and unlabored. Patient denies pain or other needs at this time, all VSS and will continue to monitor.
[2017-06-08 06:37] LABS: BASOPHILS 0.1 % (0-2); EOSINOPHILS 0.3 % (0-7); HEMATOCRIT 35.1 % (42.0-54.0); HEMOGLOBIN 10.8 g/dL (13.5-17.5); IMMATURE GRANULOCYTES 1.3 % (0-5); LYMPHOCYTES 16.4 % (15-50); MCH 25.4 pg (26.0-34.0); MCHC 30.8 g/dL (31.0-37.0); MCV 82.6 fL (80.0-100.0); MEAN PLATELET VOLUME 10.3 fL (7.4-10.4); MONOCYTES 11.7 % (2-11); NEUTROPHILS 70.2 % (40-80); PLATELET COUNT 208 10x3/uL (130-400); RBC 4.25 10x6/uL (4.20-6.10); RDW 14.5 % (11.5-14.5); WBC 11.7 10x3/uL (4.8-10.8)
[2017-06-08 06:49] LABS: ALKALINE PHOSPHATASE 83 U/L (46-116); ALT (SGPT) 16 U/L (10-68); CALC OSMOLALITY 286 mosm/kg (275-300); CALCIUM 8.3 mg/dL (8.5-10.1); CARBON DIOXIDE 32.8 mmol/L (21.0-32.0); CHLORIDE - SERUM 106 mmol/L (98-107); CREATININE - SERUM 0.9 mg/dL (0.6-1.3); GLUCOSE 92 mg/dL (74-106); POTASSIUM - SERUM 4.1 mmol/L (3.5-5.1); PROTEIN - SERUM 5.5 g/dL (6.4-8.2); SODIUM 143 mmol/L (136-145); UREA NITROGEN 17 mg/dL (7-18); eGFR NON AFRICAN AMERICAN 88 mL/min (90-120)
--- NOTE | 2017-06-08 07:45 | NUR ---
PT WAS RECEIVED LYING IN BED. HE STATES THAT HE IS HAVING PAIN IN HIS BACK THAT IT IS A 5. HE HAD A BM THIS AM AND STOOL WAS SENT TO LAB. HE IS ON O2 AT 2 1/2 LITERS NC. IV NOTED LEFT FOREARM. PATENT. NS INFUSING AT 50 CC/HR. SCD'S INTACT LOWER EXTREMITIES. PT IS UP AD K[place]. HE IS RECEIVING HIS UPDRAFT AT THIS TIME. GEN- AWAKE AND ALERT. LUNGS- WITH WHEEZING BILATERALLY NOTED. HEART- RRR. ABD- SOFT, NT, BS+. EXT- NO EDEMA NOTED. SCD'S INTACT. BED IS LOW, SIDE RAILS UP X 2 AND CALL LIGHT IN REACH.
[2017-06-08 09:15] LABS: FOLATE (FOLIC ACID) - SERUM 5.9 ng/mL (>3.0)
[2017-06-08 09:24] VITALS: BP 160/85
--- NOTE | 2017-06-08 09:30 | NUR ---
PT IS REESTING IN BED. AM MEDS GIVEN. HE OFFERS NO COMPLAINTS.
--- NOTE | 2017-06-08 10:54 | NUR ---
PT IS RESTING. BED IS LOW, SIDE RAILS UP X 2 AND CALL LIGHT IN REACH.
[2017-06-08 13:21] VITALS: Ht 172.7 cm; Wt 70.2 kg
[2017-06-08 14:02] VITALS: BP 123/61
--- NOTE | 2017-06-08 14:12 | NUR ---
PT IS ASLEEP LYING IN BED. BED IS LOW, SIDE RAILS UP X 2 AND CALL LIGHT IN REACH.
--- NOTE | 2017-06-08 15:38 | NUR ---
PT WAS LYING IN BED. AWAKE. GIVEN AFTERNOON MEDS. PT OFFERS NO COMPLAINTS. BED IS LOW, SIDE RAILS UP X 2 AND CALL LIGHT IN REACH.
[2017-06-08 16:20] VITALS: BP 125/65
[2017-06-08 20:00] VITALS: BP 132/78
--- NOTE | 2017-06-08 23:40 | NUR ---
PATIENT IS RESTING QUIETLY WITH EYES CLOSED. NO SIGNS OF DISTRESS NOTED. BED IN LOWEST POSITION, CALL LIGHT IN REACH. BED RAILS UP X'S 2.
[2017-06-09] VITALS: BP 128/66
[2017-06-09 04:00] VITALS: BP 140/62
[2017-06-09 06:03] LABS: BASOPHILS 0 % (0-2); EOSINOPHILS 0 % (0-7); HEMATOCRIT 35.5 % (42.0-54.0); HEMOGLOBIN 11.1 g/dL (13.5-17.5); IMMATURE GRANULOCYTES 1.4 % (0-5); LYMPHOCYTES 7.5 % (15-50); MCH 25.9 pg (26.0-34.0); MCHC 31.3 g/dL (31.0-37.0); MCV 82.9 fL (80.0-100.0); MEAN PLATELET VOLUME 10.7 fL (7.4-10.4); MONOCYTES 5.1 % (2-11); PLATELET COUNT 207 10x3/uL (130-400); RBC 4.28 10x6/uL (4.20-6.10); RDW 14.6 % (11.5-14.5); WBC 9.1 10x3/uL (4.8-10.8)
[2017-06-09 06:32] LABS: ALBUMIN 2.8 g/dL (3.4-5.0); ALKALINE PHOSPHATASE 85 U/L (46-116); ALT (SGPT) 17 U/L (10-68); BILIRUBIN - TOTAL 0.55 mg/dL (0.2-1.3); CALC OSMOLALITY 280 mosm/kg (275-300); CALCIUM 8.1 mg/dL (8.5-10.1); CARBON DIOXIDE 29.7 mmol/L (21.0-32.0); CHLORIDE - SERUM 103 mmol/L (98-107); CREATININE - SERUM 0.9 mg/dL (0.6-1.3); GLUCOSE 116 mg/dL (74-106); PROTEIN - SERUM 5.5 g/dL (6.4-8.2); SODIUM 139 mmol/L (136-145); UREA NITROGEN 18 mg/dL (7-18); eGFR NON AFRICAN AMERICAN 88 mL/min (90-120)
--- NOTE | 2017-06-09 07:51 | NUR ---
AWAKE AND ALERT. ORIENTED X3. NO C/O THIS AM. LUNGS HAVE CRACKLES AND WHEEZES AND ARE DIMINISHED THROUGHOUT. OCCASSIONAL DRY COUGH NOTED. SKIN IS INTACT WITHOUT REDNESS. IV TO LEFT FOREARM SL AT THIS TIME. DENIES NEEDS.
[2017-06-09 08:42] VITALS: BP 161/78
--- NOTE | 2017-06-09 10:00 | NUR ---
RESTING QUIETLY WITH EYES CLOSED. DENIES NEEDS.
--- NOTE | 2017-06-09 12:30 | NUR ---
LUNCH SERVED IN ROOM. FEEDS SELF. NO ASSIST NEEDED. DENIES NEEDS. ANXIOUS TO GET HOME.
[2017-06-09 12:52] VITALS: BP 152/83
[2017-06-09] MEDS ORDERED: OMNICEF300 MG PO (14:12)
[2017-06-09] MEDS ORDERED: BENZONATATE200 MG PO (14:15)
[2017-06-09] MEDS ORDERED: MUCINEX DM ER1 EAC1 PO (14:15)
[2017-06-09] MEDS ORDERED: FLORAJEN3 CAPS460 MG PO (14:15)
[2017-06-09] MEDS ORDERED: PREDNISONE10 MG PO (14:16)
--- NOTE | 2017-06-09 14:39 | NUR ---
CM REASSESSMENT NOTE: PATIENT IS DISCHARGING HOME/CURRENT WITH [facility]. PATIENTS FAMILY MEMBER IS DRIVING HIM HOME AND BRINGING PORTABLE O2. PATIENT HAS O2 AND NEBULIZER AT HOME.
--- NOTE | 2017-06-09 16:00 | NUR ---
PATIENT DISCHARGED TO HOME. DISCHARGE INSTRUCTIONS GIVEN BOTH VERBALLY AND WRITTEN. ALL QUESTIONS ANSWERED. PATIENT VERBALIZED UNDERSTANDING OF SAME. NEEDED PRESCRIPTIONS ESCRIBED TO PHARMACY OF CHOICE. SL TO LEFT FOREARM D/C WITH CATHETER INTACT. WAITING ON RIDE TO DISCHARGE HOME.
--- NOTE | 2017-06-09 17:15 | NUR ---
DISCHARGED TO HOME AMBULATORY WITH FAMILY. ALL BELONGINGS WITH PATIENT.
== END 2017-06-09 17:17 | disposition home health service (06) | DRG 189 ==
LOC: D.MS 11:24
PROVIDERS: Family Medicine; ADMIT Family Medicine
DX: J96.21 Acute and chronic respiratory failure with hypoxia (principal); J18.9 Pneumonia, unspecified organism; J44.0 Chronic obstructive pulmonary disease with (acute) lower respiratory infection; J98.11 Atelectasis; J44.1 Chronic obstructive pulmonary disease with (acute) exacerbation; F17.203 Nicotine dependence unspecified, with withdrawal; J96.11 Chronic respiratory failure with hypoxia; I25.10 Atherosclerotic heart disease of native coronary artery without angina pectoris; I73.9 Peripheral vascular disease, unspecified; I10 Essential (primary) hypertension; Z99.81 Dependence on supplemental oxygen; N28.1 Cyst of kidney, acquired; N40.0 Benign prostatic hyperplasia without lower urinary tract symptoms; R13.10 Dysphagia, unspecified

== ENCOUNTER → 2017-06-11 10:26 | Outpatient (CLI) | payer MEDICARE, BC ==
[2017-06-08 13:21] VITALS: BMI 23.5
--- NOTE | ~2017-06-11 | EC ---
PATIENT:JONAH WATERS DATE OF SERVICE: 06/11/17 SEX: M MEDICAL RECORD: [id number] DATE OF : [birth year] [facility] AGE OF PATIENT: 71 ADMISSION DATE: 06/11/17 REFERRING PHYSICIAN: INTERPRETING PHYSICIAN: CANDACE DONNELLY MD ECHOCARDIOGRAM REPORT ECHO CHARGES 4 ECHO COMPLETE CLINICAL DIAGNOSIS: COPD/CHF ECHOCARDIOGRAPHIC MEASUREMENTS (adult normal given) AC root (d.<3.7cm) 3.6 cm LV Septum d (<1.2 cm> 1.5 cm Valve Excursion 2.3 cm LV Septum (systole) 1.6 cm Left Atria (s.<4.0cm> 4.1 cm LVPW d(<1.2cm) 1.1 cm RV (d.<2.3cm) 4.4 cm LVPW (sytole) 1. cm LV diastole(<5.6CM) 7.1 cm MV E-F(>70mm/sec) cm LV systole 5.4 cm LVOT Diameter 2.0 cm MV exc.(>10mm) 1.2 cm Est.ejection fraction (50-75%) % Pericardial Effusion N DOPPLER: LVIT cm/sec A 93.0 cm/sec E 58.0 cm/sec LA cm/sec RVSP 31 mmHg LVOT 85 cm/sec AOP1/2T 500 m/s Asc. Ao 121 cm/sec RVOT 68 cm/sec RA cm/sec PA 77 cm/sec AV Gradient Peak 5.90 mmHg AV Mean 2.72 mmHg AV Area 2.4 cm MV Gradient Peak 6.36 mmHg MV Mean 1.72 mmHg MV Area cm COMMENTS: Corporate Strategy Analyst: Malathi MENDEZ Special Events Driver: 1 Dr. Donnelly TAPE# PACS DATE OF SERVICE: 06/11/2017 Echocardiogram Report FINDINGS: 1. Left ventricular chamber size is within normal limits. Left ventricular systolic function is normal. Overall ejection fraction estimated at 50%. 2. Left atrium, right atrium, and right ventricular chamber sizes are mildly ECHOCARDIOGRAM REPORT [id number] JONAH WATERS dilated. Left atrium measures 4.1 cm. 3. Valvular structures have normal structure and motion. 4. Doppler interrogation reveals mild aortic insufficiency, severe mitral regurgitation, mild tricuspid regurgitation, no other valvular insufficiency or stenosis. Pulmonary systolic pressure is estimated at 31 mmHg. 5. No evidence of pericardial effusion or left ventricular thrombus. TRANSINT:[id number] Voice Confirmation ID: [id number] DOCUMENT ID: [id number] CANDACE DONNELLY MD CC: [id number] DICTATION DATE: 06/11/171516 TOURS HOSTESS: 06/11/172019 [facility] [address] [id number]
[~2017-06-11 10:26] MED LIST changes: +BENZONATATE200 MG PO; +FLORAJEN3 CAPS460 MG PO; +MUCINEX DM ER1 EAC1 PO; +PREDNISONE10 MG PO
== END | disposition home or self-care (01) ==
LOC: D.ECHO 10:05 → D.RT 11:00
DX: J44.9 Chronic obstructive pulmonary disease, unspecified (principal); I50.9 Heart failure, unspecified

== ENCOUNTER 2017-10-07 10:20 | Inpatient (IN) | payer MEDICARE, BC ==
[~2017-10-07] VITALS: Ht 170.2 cm; Wt 108.0 kg
--- NOTE | ~2017-10-07 | CN ---
PATIENT NAME:JONAH WATERS MEDICAL RECORD: [id number] : 41 LOCATION:D. D.2140 ADMIT DATE: 10/07/17 ACCOUNT: [id number] CONSULTING PHYSICIAN: LEIGHA BILLS MD REFERRING PHYSICIAN: LOGAN KIDD MD DATE OF CONSULTATION: 10/07/2017 CONSULT REQUESTING PHYSICIAN: Logan Kidd MD REASON FOR CONSULTATION: Pneumonia, acute exacerbation of COPD. HISTORY OF PRESENT ILLNESS: Mr. Watres is a 71-year-old gentleman who is sick for the last 4-5 days. He is coughing. He is wheezing. He has shortness of breath. He has fever. The patient was brought into the ER. Evaluation found out he has pneumonia in right lower lobe. REVIEW OF THE SYSTEMS: Mainly in the history of present illness. PAST MEDICAL HISTORY: 1. COPD. 2. History of pneumonia. 3. Hypertension. 4. Coronary artery disease. 5. Peripheral vascular disease. 6. History of pleural effusion in the past. 7. Chronic hypoxic respiratory failure. PAST SURGICAL HISTORY: 1. Cardiac catheterization and stent placement. 2. Back surgery. 3. History of carpal tunnel syndrome repair. 4. Neck fusion. ALLERGIES: ALLERGIC TO PENICILLIN AND ATORVASTATIN. MEDICATIONS: [employer] reviewed. PERSONAL AND SOCIAL HISTORY: The patient was a heavy smoker, he quit last year. He is nondrinker. FAMILY HISTORY: Noncontributory. PHYSICAL EXAMINATION: GENERAL: Now, the patient is lying comfortably. He is not in acute distress. VITAL SIGNS: The pulse ox is 98% on nasal cannula. HEENT: Conjunctivae are pink. Sclerae nonicteric. NECK: Supple. No JVD. CHEST: There is right basal crackle and wheeze on forceful expiration. HEART: Rhythm regular. Normal sound. No murmur. ABDOMEN: Abdomen is soft. Bowel sounds present. No hepatosplenomegaly. RECTAL: Deferred. EXTREMITIES: No cyanosis, no clubbing, no pedal edema. SKIN: The skin is warm. Normal turgor. CENTRAL NERVOUS SYSTEM: The patient is awake and alert. There is no obvious cranial nerve abnormality. The gait was not tested. CONSULT REPORT [id number] JONAH WATERS CBC; WBC is 7000, hemoglobin 13.2, hematocrit 43.3, platelet count is 183. Chemistry; sodium is 140, potassium 3.8, chloride 103, bicarbonate 29.3, BUN is 17, creatinine 1.1, glucose 108. ABG; the pH was 7.44, CO2 was 37.1, pO2 was 84. This was done on 2 liters of oxygen. IMPRESSION: 1. Acute exacerbation of COPD. 2. Acute hypoxic respiratory failure. 3. Pneumonia, right lower lobe, possible HAP with the patient's recent hospitalization. 4. Right pleural effusion. 5. Acute exacerbation of COPD. 6. Ex-smoker. RECOMMENDATION: 1. Continue vancomycin and Levaquin. I will add cefepime to cover for gram-negative coverage. 2. Start methylprednisolone IV. 3. Albuterol/ipratropium nebulizer, Brovana and budesonide nebulizer, supplemental oxygen. 4. Followup labs and chest radiograph. Dr. Kidd, thank you for involving me in the care of Mr. Waters. TRANSINT:[id number] Voice Confirmation ID: [id number] DOCUMENT ID: [id number] LEIGHA BILLS MD CC: ENZO ARAUJO DO [id number] DICTATION DATE: 10/07/171725 OUTPATIENT INTERVIEWING CLERK: 10/07/17 182 ADM IN [facility] [address] [phone]
[2017-10-07 11:20] LABS: BASOPHILS 0 % (0-2); EOSINOPHILS 0.1 % (0-7); HEMATOCRIT 43.3 % (42.0-54.0); HEMOGLOBIN 13.2 g/dL (13.5-17.5); IMMATURE GRANULOCYTES 0.9 % (0-5); LYMPHOCYTES 20.7 % (15-50); MCH 23.2 pg (26.0-34.0); MCHC 30.5 g/dL (31.0-37.0); MCV 76.2 fL (80.0-100.0); MEAN PLATELET VOLUME 10.4 fL (7.4-10.4); MONOCYTES 15.1 % (2-11); NEUTROPHILS 63.2 % (40-80); PLATELET COUNT 183 10x3/uL (130-400); RBC 5.68 10x6/uL (4.20-6.10); RDW 16.5 % (11.5-14.5)
[2017-10-07 11:41] LABS: ALBUMIN 3.5 g/dL (3.4-5.0); ANION GAP 11.5 mmol/L (8-16); BILIRUBIN - TOTAL 0.74 mg/dL (0.2-1.3); CALCIUM 9.1 mg/dL (8.5-10.1); CARBON DIOXIDE 29.3 mmol/L (21.0-32.0); CREATININE - SERUM 1.1 mg/dL (0.6-1.3); POTASSIUM - SERUM 3.8 mmol/L (3.5-5.1); PROTEIN - SERUM 6.7 g/dL (6.4-8.2)
[2017-10-07 12:54] LABS: APPEARANCE HAZY (CLEAR); BACTERIA FEW /hpf (NONE SEEN); BILIRUBIN NEGATIVE (NEGATIVE); COLOR DK YELLOW (YELLOW); EPITHELIAL CELLS 0-5 /hpf (0-5); GLUCOSE NEGATIVE (NEGATIVE); KETONE SMALL mg/dL (NEGATIVE); MUCUS <1+ /lpf (NONE SEEN); NITRITE NEGATIVE (NEGATIVE); PROTEIN 1+ mg/dL (NEGATIVE); RED CELLS - URINE OCC /hpf (0-5); SPECIFIC GRAVITY 1.015 (1.005-1.020); WHITE CELLS - URINE 0-5 /hpf (0-5)
[2017-10-07] MEDS ORDERED: MORPHINE SULFAT15 M4 (19:49)
[2017-10-07 20:51] VITALS: BP 146/91
[2017-10-08 00:29] VITALS: BP 133/83
[2017-10-08 04:17] VITALS: BP 143/73
[2017-10-08 08:00] VITALS: BP 156/90
[2017-10-08 12:00] VITALS: BP 148/96
[2017-10-08 14:00] VITALS: Ht 170.2 cm; Wt 108.0 kg
[2017-10-08 15:45] LABS: BASOPHILS 0 % (0-2); EOSINOPHILS 0 % (0-7); HEMATOCRIT 40.4 % (42.0-54.0); HEMOGLOBIN 12.5 g/dL (13.5-17.5); IMMATURE GRANULOCYTES 1.2 % (0-5); LYMPHOCYTES 10.8 % (15-50); MCH 23.3 pg (26.0-34.0); MCHC 30.9 g/dL (31.0-37.0); MCV 75.2 fL (80.0-100.0); MEAN PLATELET VOLUME 10.3 fL (7.4-10.4); MONOCYTES 10.2 % (2-11); NEUTROPHILS 77.8 % (40-80); PLATELET COUNT 177 10x3/uL (130-400); RBC 5.37 10x6/uL (4.20-6.10); RDW 16.6 % (11.5-14.5)
[2017-10-08 15:46] LABS: WBC 3.4 10x3/uL (4.8-10.8)
[2017-10-08 16:00] VITALS: BP 123/69
[2017-10-08 16:22] LABS: CALC OSMOLALITY 286 mosm/kg (275-300); CALCIUM 8.7 mg/dL (8.5-10.1); CARBON DIOXIDE 26.4 mmol/L (21.0-32.0); CHLORIDE - SERUM 106 mmol/L (98-107); CREATININE - SERUM 0.9 mg/dL (0.6-1.3); GLUCOSE 112 mg/dL (74-106); POTASSIUM - SERUM 3.9 mmol/L (3.5-5.1); SODIUM 142 mmol/L (136-145); UREA NITROGEN 20 mg/dL (7-18); eGFR NON AFRICAN AMERICAN 88 mL/min (90-120)
[2017-10-08 20:45] VITALS: BP 121/64
[2017-10-09 00:30] VITALS: BP 127/76
[2017-10-09 07:42] LABS: BASOPHILS 0 % (0-2); EOSINOPHILS 0 % (0-7); HEMATOCRIT 38.3 % (42.0-54.0); HEMOGLOBIN 11.6 g/dL (13.5-17.5); IMMATURE GRANULOCYTES 0.5 % (0-5); LYMPHOCYTES 13.7 % (15-50); MCH 22.9 pg (26.0-34.0); MCHC 30.3 g/dL (31.0-37.0); MCV 75.5 fL (80.0-100.0); MEAN PLATELET VOLUME 10.8 fL (7.4-10.4); MONOCYTES 13.3 % (2-11); NEUTROPHILS 72.5 % (40-80); PLATELET COUNT 186 10x3/uL (130-400); RBC 5.07 10x6/uL (4.20-6.10); RDW 16.6 % (11.5-14.5)
[2017-10-09 07:45] LABS: WBC 7.8 10x3/uL (4.8-10.8)
[2017-10-09 08:00] VITALS: BP 162/92
[2017-10-09 08:22] LABS: ANION GAP 10.6 mmol/L (8-16); CALCIUM 8.5 mg/dL (8.5-10.1); CARBON DIOXIDE 28.2 mmol/L (21.0-32.0); CREATININE - SERUM 1.1 mg/dL (0.6-1.3); MAGNESIUM - SERUM 2.3 mg/dL (1.8-2.4); PHOSPHOROUS 4.4 mg/dL (2.5-4.9); POTASSIUM - SERUM 3.8 mmol/L (3.5-5.1); PRE-ALBUMIN 22.6 mg/dL (18.0-35.7)
[2017-10-09 12:00] VITALS: BP 118/57
[2017-10-10] VITALS: BP 150/66
[2017-10-10 06:20] VITALS: BP 144/69
[2017-10-10 07:15] LABS: BASOPHILS 0 % (0-2); EOSINOPHILS 0 % (0-7); HEMATOCRIT 37.2 % (42.0-54.0); HEMOGLOBIN 11.3 g/dL (13.5-17.5); IMMATURE GRANULOCYTES 0.5 % (0-5); LYMPHOCYTES 7.5 % (15-50); MCH 22.9 pg (26.0-34.0); MCHC 30.4 g/dL (31.0-37.0); MCV 75.5 fL (80.0-100.0); MEAN PLATELET VOLUME 10.4 fL (7.4-10.4); MONOCYTES 6.1 % (2-11); NEUTROPHILS 85.9 % (40-80); PLATELET COUNT 195 10x3/uL (130-400); RBC 4.93 10x6/uL (4.20-6.10); RDW 16.6 % (11.5-14.5); WBC 8.6 10x3/uL (4.8-10.8)
[2017-10-10 07:38] LABS: CALC OSMOLALITY 287 mosm/kg (275-300); CALCIUM 8.5 mg/dL (8.5-10.1); CARBON DIOXIDE 27.5 mmol/L (21.0-32.0); CHLORIDE - SERUM 107 mmol/L (98-107); CREATININE - SERUM 0.9 mg/dL (0.6-1.3); GLUCOSE 114 mg/dL (74-106); POTASSIUM - SERUM 3.7 mmol/L (3.5-5.1); SODIUM 142 mmol/L (136-145); UREA NITROGEN 25 mg/dL (7-18); eGFR NON AFRICAN AMERICAN 88 mL/min (90-120)
[2017-10-10 08:12] VITALS: BP 122/86
[2017-10-10 11:30] VITALS: BP 132/84
[2017-10-10 15:40] VITALS: BP 130/80
[2017-10-10 21:52] VITALS: BP 134/60
[2017-10-11 00:52] VITALS: BP 167/68
[2017-10-11 07:25] VITALS: BP 136/60
[2017-10-11 07:43] LABS: BASOPHILS 0 % (0-2); EOSINOPHILS 0 % (0-7); HEMATOCRIT 36.1 % (42.0-54.0); IMMATURE GRANULOCYTES 0.4 % (0-5); LYMPHOCYTES 11.8 % (15-50); MCH 23.2 pg (26.0-34.0); MCHC 30.5 g/dL (31.0-37.0); MEAN PLATELET VOLUME 10.3 fL (7.4-10.4); MONOCYTES 10.1 % (2-11); NEUTROPHILS 77.7 % (40-80); PLATELET COUNT 199 10x3/uL (130-400); RBC 4.75 10x6/uL (4.20-6.10); RDW 16.6 % (11.5-14.5); WBC 10.4 10x3/uL (4.8-10.8)
[2017-10-11 08:00] VITALS: BP 149/78
[2017-10-11 08:01] LABS: CALC OSMOLALITY 286 mosm/kg (275-300); CALCIUM 8.6 mg/dL (8.5-10.1); CARBON DIOXIDE 28.7 mmol/L (21.0-32.0); CHLORIDE - SERUM 108 mmol/L (98-107); CREATININE - SERUM 0.8 mg/dL (0.6-1.3); GLUCOSE 102 mg/dL (74-106); POTASSIUM - SERUM 3.4 mmol/L (3.5-5.1); SODIUM 142 mmol/L (136-145); UREA NITROGEN 24 mg/dL (7-18); eGFR NON AFRICAN AMERICAN > 90 mL/min (90-120)
[2017-10-11 12:03] VITALS: BP 134/61
[2017-10-11 19:00] VITALS: BP 135/66
[2017-10-12] VITALS: BP 155/68
[2017-10-12 04:00] VITALS: BP 155/77
[2017-10-12 05:30] LABS: BASOPHILS 0 % (0-2); EOSINOPHILS 0 % (0-7); HEMATOCRIT 36.8 % (42.0-54.0); HEMOGLOBIN 11.3 g/dL (13.5-17.5); IMMATURE GRANULOCYTES 0.6 % (0-5); LYMPHOCYTES 5.3 % (15-50); MCH 23.3 pg (26.0-34.0); MCHC 30.7 g/dL (31.0-37.0); MCV 75.7 fL (80.0-100.0); NEUTROPHILS 90.1 % (40-80); PLATELET COUNT 199 10x3/uL (130-400); RBC 4.86 10x6/uL (4.20-6.10); RDW 16.7 % (11.5-14.5); WBC 8.2 10x3/uL (4.8-10.8)
[2017-10-12 05:43] LABS: CALC OSMOLALITY 278 mosm/kg (275-300); CALCIUM 8.6 mg/dL (8.5-10.1); CARBON DIOXIDE 29.3 mmol/L (21.0-32.0); CHLORIDE - SERUM 105 mmol/L (98-107); CREATININE - SERUM 0.7 mg/dL (0.6-1.3); GLUCOSE 121 mg/dL (74-106); POTASSIUM - SERUM 3.7 mmol/L (3.5-5.1); SODIUM 137 mmol/L (136-145); UREA NITROGEN 25 mg/dL (7-18); eGFR NON AFRICAN AMERICAN > 90 mL/min (90-120)
[2017-10-12 08:05] VITALS: BP 138/71
[2017-10-12 12:58] VITALS: BP 141/75
[2017-10-12 17:23] VITALS: BP 129/58
[2017-10-12 19:00] VITALS: BP 134/58
[2017-10-13 04:00] VITALS: BP 146/75
[2017-10-13 05:41] LABS: BASOPHILS 0 % (0-2); EOSINOPHILS 0.1 % (0-7); HEMATOCRIT 36.4 % (42.0-54.0); HEMOGLOBIN 11.3 g/dL (13.5-17.5); IMMATURE GRANULOCYTES 0.8 % (0-5); LYMPHOCYTES 12.2 % (15-50); MCH 23.4 pg (26.0-34.0); MCV 75.5 fL (80.0-100.0); MEAN PLATELET VOLUME 10.9 fL (7.4-10.4); NEUTROPHILS 75.9 % (40-80); PLATELET COUNT 203 10x3/uL (130-400); RBC 4.82 10x6/uL (4.20-6.10); RDW 16.7 % (11.5-14.5)
[2017-10-13 05:55] LABS: WBC 11.6 10x3/uL (4.8-10.8)
[2017-10-13 06:11] LABS: CALC OSMOLALITY 287 mosm/kg (275-300); CALCIUM 8.5 mg/dL (8.5-10.1); CARBON DIOXIDE 29.7 mmol/L (21.0-32.0); CHLORIDE - SERUM 106 mmol/L (98-107); CREATININE - SERUM 0.8 mg/dL (0.6-1.3); GLUCOSE 89 mg/dL (74-106); POTASSIUM - SERUM 3.2 mmol/L (3.5-5.1); SODIUM 143 mmol/L (136-145); UREA NITROGEN 23 mg/dL (7-18); eGFR NON AFRICAN AMERICAN > 90 mL/min (90-120)
[2017-10-13 09:03] VITALS: BP 106/68
[2017-10-13 13:25] VITALS: BP 130/76
[2017-10-13] MEDS ORDERED: PREDNISONE10 MG PO (13:32)
[2017-10-13] MEDS ORDERED: LEVAQUIN750 MG PO (13:35)
== END 2017-10-13 17:05 | disposition home health service (06) | DRG 177 ==
LOC: D.ER 10:20 → D.M2 15:48
PROVIDERS: Emergency Medicine; Family Medicine
DX: J15.6 Pneumonia due to other Gram-negative bacteria (principal); J96.21 Acute and chronic respiratory failure with hypoxia; J44.0 Chronic obstructive pulmonary disease with (acute) lower respiratory infection; J44.1 Chronic obstructive pulmonary disease with (acute) exacerbation; E46 Unspecified protein-calorie malnutrition; J98.11 Atelectasis; I50.20 Unspecified systolic (congestive) heart failure; F17.203 Nicotine dependence unspecified, with withdrawal; J15.212 Pneumonia due to Methicillin resistant Staphylococcus aureus; E03.9 Hypothyroidism, unspecified; G89.4 Chronic pain syndrome; Z68.20 Body mass index [BMI] 20.0-20.9, adult; R91.1 Solitary pulmonary nodule; I08.3 Combined rheumatic disorders of mitral, aortic and tricuspid valves; N40.0 Benign prostatic hyperplasia without lower urinary tract symptoms; J30.9 Allergic rhinitis, unspecified; F03.90 Unspecified dementia, unspecified severity, without behavioral disturbance, psychotic disturbance, mood disturbance, and anxiety; I11.0 Hypertensive heart disease with heart failure; I27.20 Pulmonary hypertension, unspecified; I25.10 Atherosclerotic heart disease of native coronary artery without angina pectoris; E78.5 Hyperlipidemia, unspecified; D63.8 Anemia in other chronic diseases classified elsewhere; Z95.5 Presence of coronary angioplasty implant and graft

== ENCOUNTER → 2017-12-09 10:29 | Outpatient (CLI) | payer MEDICARE, BC ==
[2017-10-08 14:00] VITALS: BMI 20.5
[~2017-12-09 10:29] MED LIST changes: +LEVAQUIN750 MG PO; +MORPHINE SULFAT15 M4
== END | disposition home or self-care (01) ==
LOC: D.RT 10:29
DX: J44.9 Chronic obstructive pulmonary disease, unspecified (principal)